=== PATIENT | female | born 1955 | race Caucasian/White ===

== ENCOUNTER 2016-12-02 08:35 | Outpatient (CLI) ==
[2016-12-02 09:27] LABS: ALBUMIN 3.7 g/dL (3.4-5.0); ALBUMIN/GLOBULIN RATIO 1.28; ANION GAP 13.3; BILIRUBIN,TOTAL 0.85 mg/dL (0.00-1.20); BUN/CREATININE RATIO 14.73; CALCIUM 9.2 mg/dL (8.2-10.2); CREATININE 0.95 mg/dL (0.60-1.30); POTASSIUM 4.3 mmol/L (3.5-5.10); TOTAL PROTEIN 6.6 g/dL (5.8-8.1)
== END 2016-12-02 08:36 | disposition home or self-care (01) ==
LOC: LAB 08:35
PROVIDERS: ATTEND Nurse Practitioner Family
DX: I10 Essential (primary) hypertension (principal); E11.65 Type 2 diabetes mellitus with hyperglycemia
CPT/HCPCS: 36415; 80053; 83036

== ENCOUNTER 2017-02-24 08:22 | Outpatient (CLI) ==
--- NOTE | 2017-02-27 08:19 | MAMMO ---
EXAM: Bilateral digital screening mammogram History: Screening Comparison: Bilateral mammogram 02/17/2016 Findings: MLO and CC views of bilateral breasts demonstrate predominately fatty replaced breast par enchyma. Stable benign bilateral breast calcifications. There are no dominant masses, no suspiciou s microcalcifications and no architectural distortions Impression: Benign stable mammogram. Recommend followup routine screening mammography in 1 year. BIRADS 2
== END 2017-02-24 08:23 | disposition home or self-care (01) ==
LOC: RAD 08:22
PROVIDERS: ATTEND Nurse Practitioner Family
DX: Z12.31 Encounter for screening mammogram for malignant neoplasm of breast (principal)

== ENCOUNTER 2017-03-03 07:31 | Outpatient (CLI) ==
[2017-03-03 08:27] LABS: BILIRUBIN,URINE Negative (NEGATIVE); KETONES,URINE Negative (NEGATIVE); LEUKOCYTE ESTERASE ,URINE Negative (NEGATIVE); NITRITE,URINE Negative (NEGATIVE); PH,URINE 6.5 (5-9); PROTEIN,URINE Negative (NEGATIVE); URINE, BLOOD 2+ (NEGATIVE)
[2017-03-03 08:28] LABS: BASOPHILS # (AUTO) 0.1 K/uL (0-0.2); EOSINOPHILS # (AUTO) 0.3 K/ul (0.0-0.7); EOSINOPHILS % (AUTO) 3.2 % (0.0-7.0); HEMATOCRIT 42.5 % (37.0-47.0); HEMOGLOBIN 14.6 g/dl (12.0-16.0); IMMATURE GRANULOCYTE % (AUTO) 0.5 % (0.0-5.0); LYMPHOCYTES # (AUTO) 2.7 K/uL (0.60-3.4); LYMPHOCYTES % (AUTO) 34.2 (10.0-50.0); MEAN CORPUSCULAR HEMOGLOBIN 31.2 pg (27.0-31.0); MEAN CORPUSCULAR HGB CONC 34.4 (31.8-35.4); MEAN CORPUSCULAR VOLUME 90.8 fl (81.0-99.0); MONOCYTES # (AUTO) 0.7 K/uL (0.4-2.0); MONOCYTES % (AUTO) 8.5 (0-10); NEUTROPHILS # (AUTO) 4.2 K/ul (2.0-6.9); NEUTROPHILS % (AUTO) 52.6; PLATELET COUNT 189 10^3/uL (140-440); RED BLOOD COUNT 4.68 10^6/ul (4.20-5.40); WHITE BLOOD COUNT 8.01 K/ul (4.6-10.2)
[2017-03-03 08:31] LABS: ALANINE AMINOTRANSFERASE < 6 U/L (12-78); ALBUMIN 3.8 g/dL (3.4-5.0); ALBUMIN/GLOBULIN RATIO 1.23; ALKALINE PHOSPHATASE 61 U/L (53-141); ANION GAP 12.3; ASPARTATE AMINO TRANSFERASE 21 U/L (15-37); BILIRUBIN,TOTAL 0.63 mg/dL (0.00-1.20); BLOOD UREA NITROGEN 14 mg/dL (7-18); CALCIUM 9.1 mg/dL (8.2-10.2); CARBON DIOXIDE 27 mmol/L (23-31); CHLORIDE 104 mmol/L (98-107); CHOL/HDL RATIO 3.9 (4.5-5.5); CHOLESTEROL 155 mg/dL (0-200); GLUCOSE 279 mg/dL (82-115); HDL CHOLESTEROL 40 mg/dL (35-80); POTASSIUM 4.3 mmol/L (3.5-5.10); SODIUM 139 mmol/L (136-145); TOTAL PROTEIN 6.9 g/dL (5.8-8.1); TRIGLYCERIDES 104 mg/dL (30-150); VLDL CHOLESTEROL 21 mg/dL (2-30)
[2017-03-03 08:32] LABS: ADD URINE MICROSCOPIC YES
== END 2017-03-03 07:32 | disposition home or self-care (01) ==
LOC: LAB 07:31
PROVIDERS: ATTEND Nurse Practitioner Family
DX: E78.5 Hyperlipidemia, unspecified (principal); E11.65 Type 2 diabetes mellitus with hyperglycemia; I10 Essential (primary) hypertension
CPT/HCPCS: 36415; 80053; 80061; 81001; 83036; 85025

== ENCOUNTER 2017-07-07 08:18 | Outpatient (CLI) ==
[2017-07-07 09:18] LABS: ALBUMIN 3.7 g/dL (3.4-5.0); ALBUMIN/GLOBULIN RATIO 1.23; ANION GAP 13.4; BILIRUBIN,TOTAL 1.08 mg/dL (0.00-1.20); BUN/CREATININE RATIO 17.47; CALCIUM 9.4 mg/dL (8.2-10.2); CREATININE 1.03 mg/dL (0.60-1.30); POTASSIUM 4.4 mmol/L (3.5-5.10); TOTAL PROTEIN 6.7 g/dL (5.8-8.1)
== END 2017-07-07 08:19 ==
LOC: LAB 08:18
PROVIDERS: ATTEND Nurse Practitioner Family
DX: E11.65 Type 2 diabetes mellitus with hyperglycemia (principal); I10 Essential (primary) hypertension
CPT/HCPCS: 36415; 80053; 83036

== ENCOUNTER 2017-11-06 08:38 | Outpatient (CLI) ==
[2017-11-06 08:56] LABS: BASOPHILS # (AUTO) 0.1 K/uL (0-0.2); BASOPHILS % (AUTO) 0.7 % (0.0-3.0); EOSINOPHILS # (AUTO) 0.2 K/ul (0.0-0.7); EOSINOPHILS % (AUTO) 1.9 % (0.0-7.0); HEMATOCRIT 42.7 % (37.0-47.0); HEMOGLOBIN 14.5 g/dl (12.0-16.0); IMMATURE GRANULOCYTE % (AUTO) 0.2 % (0.0-5.0); LYMPHOCYTES # (AUTO) 2.9 K/uL (0.60-3.4); LYMPHOCYTES % (AUTO) 35.2 (10.0-50.0); MEAN CORPUSCULAR HEMOGLOBIN 30.8 pg (27.0-31.0); MEAN CORPUSCULAR VOLUME 90.7 fl (81.0-99.0); MONOCYTES # (AUTO) 0.7 K/uL (0.4-2.0); MONOCYTES % (AUTO) 8.6 (0-10); NEUTROPHILS # (AUTO) 4.3 K/ul (2.0-6.9); NEUTROPHILS % (AUTO) 53.4; PLATELET COUNT 190 10^3/uL (140-440); RED BLOOD COUNT 4.71 10^6/ul (4.20-5.40)
[2017-11-06 09:38] LABS: ALBUMIN 3.6 g/dL (3.4-5.0); ALBUMIN/GLOBULIN RATIO 1.2; ANION GAP 13.4; BUN/CREATININE RATIO 13.68; CALCIUM 9.3 mg/dL (8.2-10.2); CHOL/HDL RATIO 4.3 (4.5-5.5); CREATININE 0.95 mg/dL (0.60-1.30); POTASSIUM 4.4 mmol/L (3.5-5.10); TOTAL PROTEIN 6.6 g/dL (5.8-8.1)
[2017-11-06 09:39] LABS: BILIRUBIN,TOTAL 0.8 mg/dL (0.00-1.20)
== END 2017-11-06 08:39 | disposition home or self-care (01) ==
LOC: LAB 08:38
PROVIDERS: ATTEND Nurse Practitioner Family
DX: E11.65 Type 2 diabetes mellitus with hyperglycemia (principal); I10 Essential (primary) hypertension
CPT/HCPCS: 36415; 80053; 80061; 83036; 84443; 85025

== ENCOUNTER 2018-02-16 08:00 | Outpatient (CLI) | END 2018-02-16 08:01 | disposition home or self-care (01) | LOC: LAB 08:00 | PROVIDERS: ATTEND Nurse Practitioner Family | DX: I10 Essential (primary) hypertension (principal); E78.5 Hyperlipidemia, unspecified; E11.9 Type 2 diabetes mellitus without complications | CPT/HCPCS: 36415; 80053; 80061; 83036 ==

== ENCOUNTER 2018-05-31 07:41 | Outpatient (CLI) | END 2018-05-31 07:42 | disposition home or self-care (01) | LOC: LAB 07:41 | PROVIDERS: ATTEND Nurse Practitioner Family | DX: E11.9 Type 2 diabetes mellitus without complications (principal); I10 Essential (primary) hypertension; E78.5 Hyperlipidemia, unspecified | CPT/HCPCS: 36415; 80053; 80061; 83036; 85025 ==

== ENCOUNTER 2018-08-31 08:28 | Outpatient (CLI) | END 2018-08-31 08:29 | disposition home or self-care (01) | LOC: LAB 08:28 | PROVIDERS: ATTEND Nurse Practitioner Family | DX: E11.9 Type 2 diabetes mellitus without complications (principal) | CPT/HCPCS: 36415; 80053; 80061; 83036 ==

== ENCOUNTER 2018-11-30 08:29 | Outpatient (CLI) | END 2018-11-30 08:30 | disposition home or self-care (01) | LOC: LAB 08:29 | PROVIDERS: ATTEND Nurse Practitioner Family | DX: E11.65 Type 2 diabetes mellitus with hyperglycemia (principal); I10 Essential (primary) hypertension | CPT/HCPCS: 36415; 80053; 83036 ==

== ENCOUNTER 2019-03-08 09:01 | Outpatient (CLI) | END 2019-03-08 09:02 | disposition home or self-care (01) | LOC: LAB 09:01 | PROVIDERS: ATTEND Nurse Practitioner Family | DX: E11.9 Type 2 diabetes mellitus without complications (principal); I10 Essential (primary) hypertension; E78.5 Hyperlipidemia, unspecified | CPT/HCPCS: 36415; 80053; 80061; 83036; 84443; 85025 ==

== ENCOUNTER 2021-04-22 15:01 | Observation (INO) ==
[2021-04-22] MEDS ORDERED: SODIUM CHLORIDE 1,000 ML IV STA (15:49)
[2021-04-22] MEDS ORDERED: ZOFRAN 4 MG/2 ML IVP STA (15:53)
[2021-04-22] MEDS ORDERED: MORPHINE 4 MG/ML SYRINGE IVP STA (15:58)
[2021-04-22 16:09] LABS: BASOPHILS # (AUTO) 0.1 K/uL (0-0.2); BASOPHILS % (AUTO) 0.5 % (0.0-3.0); EOSINOPHILS % (AUTO) 0.1 % (0.0-7.0); HEMATOCRIT 47.9 % (37.0-47.0); HEMOGLOBIN 16.7 g/dl (12.0-16.0); IMMATURE GRANULOCYTE # (AUTO) 0.1 (0.0-1.0); IMMATURE GRANULOCYTE % (AUTO) 0.7 % (0.0-5.0); LYMPHOCYTES # (AUTO) 0.9 K/uL (0.60-3.4); MEAN CORPUSCULAR HEMOGLOBIN 31.3 pg (27.0-31.0); MEAN CORPUSCULAR HGB CONC 34.9 (31.8-35.4); MEAN CORPUSCULAR VOLUME 89.9 fl (81.0-99.0); MONOCYTES # (AUTO) 0.7 K/uL (0.4-2.0); MONOCYTES % (AUTO) 4.8 (0-10); NEUTROPHILS # (AUTO) 12.4 K/ul (2.0-6.9); NEUTROPHILS % (AUTO) 87.9 % (42.2-75.2); PLATELET COUNT 186 10^3/uL (140-440); RDW COEFFICIENT OF VARIATION 13.2 % (11.6-14.8); RED BLOOD COUNT 5.33 10^6/ul (4.20-5.40); WHITE BLOOD COUNT 14.05 K/ul (4.6-10.2)
--- NOTE | 2021-04-22 16:09 | ED.PDOC ---
General ED Provider: Dr. SOL LEE Chief Complaint: Nausea/Vomiting Stated Complaint: Onset of RT SIDED ABDOMINAL AND RIGHT SIDED FLANK PAIN THIS MORNING. ASSOCIATED NAUSEA VOMITING AND THEN DIARRHEA. FEEL WEAK AND SHAKY PMHX RENAL STONES Time Seen by Provider: 04/22/21 15:40 Mode of Arrival: Walk-In Information Source: Patient Exam Limitations: No limitations Primary Care Provider: BILL WHEAT APRN, FNP-AMELIA Nursing and Triage Documentation Reviewed and Agree: Yes Does patient meet sepsis criteria?: No System Inflammatory Response Syndrome: Not Applicable Sepsis Protocol: For patient's 13 years and over: Temp is 96.8 and below OR 101 and greater Pulse >90 BPM Resp >20/minute Acutely Altered Mental Status Are patient's symptoms suggestive of a new infection, such as: -Pneumonia -Skin, Soft Tissue -Endocarditis -UTI -Bone, Joint Infection -Implantable Device -Acute Abdominal Infection -Wound Infection -Meningitis -Blood Stream Catheter Infection -Unknown GI Complaint Exam Abdominal Pain Complaint/Exam Onset: Sudden Duration: 7 HRS Symptoms Are: Still present Timing: Intermittent Initial Severity: Moderate Current Severity: Moderate Location of Pain: Diffuse, RUQ, RLQ, Epigastric and Suprapubic Radiates To: Reports Back and Flank Character: Reports Sharp, Aching and Cramping Aggravating: Reports Position Alleviating: Reports None Associated Signs and Symptoms: Reports Dizziness and Urinary frequency; Denies Diaphoresis, Fever, Cough, Chest pain, Back pain, Constipation, Blood in stool, Dysuria, Decreased urine output, Decreased appetite, Vaginal bleeding, Vaginal discharge, Nausea, Vomiting, Diarrhea, Sore throat and Decreased activity Related History: Reports Similar episode Cardiac Risk Factors: Reports None Ectopic Risk Factors: Reports None Ovarian Torsion Risk Factors: Reports None Surgical Obstruction Risk Factors: Reports Colicky abdominal pain Abdominal Findings: Present Abdominal distention and CVA Tenderness Review of Systems Review Of Systems Constitutional: Reports No symptoms Eyes: Reports No symptoms Ears, Nose, Mouth, Throat: Reports No symptoms Respiratory: Reports No symptoms Cardiac: Reports No symptoms GI: Reports Abdominal pain, Nausea and Vomiting : Reports Dysuria and Flank pain Musculoskeletal: Reports No symptoms Skin: Reports No symptoms Neurological: Reports No symptoms Endocrine: Reports No symptoms Hematologic/Lymphatic: Reports No symptoms All Other Systems: Reviewed and Negative [facility] Medical History Bilateral bunions Diabetes mellitus History of kidney stones Hypertension Family History Mother Diabetes FATHER Diabetes SISTER Hypertension Social History Smoking and tobacco status: Former smoker Passive smoking exposure: No Second hand smoke exposure: No Smoking risk assessment performed: No Alcohol intake: never Counseling given: No Counseling provided: none Substance use type: does not use Counseling given: No Counseling provided: none Adopted: No Caregiver/support person: No Foster care: No Household members: spouse Housing: house Marital status: M Lives independently: Yes Number of children: 4 Financial difficulty paying for basics: hard service: No correction: No Current occupational status: retired Current occupational exposures/hazards: No Pets and animals: Yes History of recent travel: No Sexually active: Yes Do you think of yourself as: straight/heterosexual Current gender identity: female Seatbelt use: always Drives intoxicated or rides with intoxicated cdl a driver: No Water heater temperature set < 120 degrees: Yes Working smoke detector in home: Yes Fire extinguisher in home: Yes Carbon monoxide detector in home: Yes Firearms in home: No Surgical History Status post cholecystectomy Female Reproductive History Menstrual Age of Menarche: 11 Hx Hysterectomy: No Hx Tubal Ligation: Yes Physical Exam Physical Exam Appearance: Reports Ill-appearing and Obese Ill-appearing: Moderate Pain Distress: Moderate Eyes: Reports ELIANE, EOMI and Conjunctiva clear ENT: Reports Ears normal, Nose normal and Oropharynx normal Neck: Supple Respiratory: Reports Airway patent, Breath sounds clear, Breath sounds equal and Respirations nonlabored Cardiovascular: Reports RRR, Pulses normal, No rub and No murmur GI/: Reports Soft, No masses, No Organomegaly, Tender and Bowel sounds hypoactive Musculoskeletal: Reports Normal strength, ROM intact, No edema and No calf tenderness Skin: Reports Warm, Dry and Normal color Neurological: Reports Sensation intact, Motor intact, Cranial nerves intact, Alert and Oriented Psychiatric: Reports Affect appropriate and Mood appropriate Interpretation Radiology Interpretation Exam Interpreted: CT Scan (Obstructive 0.7 cm right UPJ calculus with moderate/severe hydronephrosis. Additional nonobstructive right mid/distal ureteral 0.2 cm calculus. Superimposed perinephric and periureteral fat stranding may represent inflammatory change; although infection could have similar appearance. 2. Nonobstru) EKG Interpretation Time of EKG #1: 16:07 Rate: Tachy Rhythm: Sinus Ectopy: None ST Segment: Normal Interpretation: Sinus Tachycardia Re-Evaluation Re-Evaluation Time of Re-Evaluation: 17:54 Pain Level: Pain has improved. VSS. No additional Vomiting or diarrhea Lungs: Clear Skin: Warm and Dry Neuro: Alert and Oriented X3 CV: RRR Physician Notification Case Discussed Physician Notified: Dr Rudd- prefers pt admitted her for hydration and pain control/ Would Time of Notification: 18:45 Physician Notified: If remains stable will discharge pt to travel to [facility] Consult With: Dr Rudd-tomorrow at [facility] ureteral stone removal Critical Care Note Critical Care Note Total Critical Care Time (mins): 60 Course Course Hematology/Chemistry: 04/22/21 16:05 04/22/21 16:05 Orders, Labs, Meds: Lab Review 04/22/21 04/22/21 04/22/21 07:15 16:05 16:05 WBC 14.05 H RBC 5.33 Hgb 16.7 H Hct 47.9 H MCV 89.9 MCH 31.3 H MCHC 34.9 RDW Coeff of Mariela 13.2 Plt Count 186 Immature Gran % (Auto) 0.7 Neut % (Auto) 87.9 H Lymph % (Auto) 6.0 L [place] % (Auto) 4.8 Eos % (Auto) 0.1 Baso % (Auto) 0.5 Neut # (Auto) 12.4 H Lymph # (Auto) 0.9 [place] # (Auto) 0.7 Eos # (Auto) 0.0 Baso # (Auto) 0.1 Immature Gran # (Auto) 0.1 Sodium 137.0 Potassium 4.78 Chloride 100.2 Carbon Dioxide 26.3 Anion Gap 15.28 BUN 11.6 Creatinine 0.94 Estimated GFR (MDRD) 59.00 BUN/Creatinine Ratio 12.34 Glucose 245.4 H Lactic Acid Uric Acid 5.13 Calcium 9.47 Magnesium 0.66 L* Total Bilirubin 1.40 H AST 36.0 ALT 30.0 Alkaline Phosphatase 82.2 Total Protein 7.51 Albumin 4.55 Globulin 2.96 Albumin/Globulin Ratio 1.53 Procalcitonin 0.38 Adenovirus (PCR) B. pertussis DNA (PCR) B.parapertussis DNA PCR C. pneumoniae DNA (PCR) Coronavirus OC43 (PCR) Coronavirus HKU1 (PCR) Coronavirus 229E (PCR) Coronavirus NL63 (PCR) Human Metapneumovir PCR Influenza B (RT-PCR) M. pneumoniae (PCR) Parainfluenza 1 (PCR) Parainfluenza 2 (PCR) Parainfluenza 3 (PCR) Parainfluenza 4 (PCR) RSV (PCR) Entero/Rhino (PCR) SARS-CoV-2 (PCR) 04/22/21 04/22/21 18:10 18:35 WBC RBC Hgb Hct MCV MCH MCHC RDW Coeff of Mariela Plt Count Immature Gran % (Auto) Neut % (Auto) Lymph % (Auto) [place] % (Auto) Eos % (Auto) Baso % (Auto) Neut # (Auto) Lymph # (Auto) [place] # (Auto) Eos # (Auto) Baso # (Auto) Immature Gran # (Auto) Sodium Potassium Chloride Carbon Dioxide Anion Gap BUN Creatinine Estimated GFR (MDRD) BUN/Creatinine Ratio Glucose Lactic Acid 1.87 Uric Acid Calcium Magnesium Total Bilirubin AST ALT Alkaline Phosphatase Total Protein Albumin Globulin Albumin/Globulin Ratio Procalcitonin Adenovirus (PCR) Not detected B. pertussis DNA (PCR) Not detected B.parapertussis DNA PCR Not detected C. pneumoniae DNA (PCR) Not detected Coronavirus OC43 (PCR) Not detected Coronavirus HKU1 (PCR) Not detected Coronavirus 229E (PCR) Not detected Coronavirus NL63 (PCR) Not detected Human Metapneumovir PCR Not detected Influenza B (RT-PCR) Not detected M. pneumoniae (PCR) Not detected Parainfluenza 1 (PCR) Not detected Parainfluenza 2 (PCR) Not detected Parainfluenza 3 (PCR) Not detected Parainfluenza 4 (PCR) Not detected RSV (PCR) Not detected Entero/Rhino (PCR) Not detected SARS-CoV-2 (PCR) Not detected Orders Category Date Time Status EKG-(ED ONLY) Stat CARDIO 04/22/21 15:49 Completed IV [ED IV/MEDIPORT/POWERPORT] .ONCE EMERGENCY 04/22/21 15:49 Active CBC W/ AUTO DIFF Stat LAB 04/22/21 16:05 Completed CMP [COMPREHENSIVE METABOLIC PANEL] Stat LAB 04/22/21 16:05 Completed LACTIC ACID Stat LAB 04/22/21 18:35 Completed MAGNESIUM Stat LAB 04/22/21 16:05 Completed MAGNESIUM Stat LAB 04/22/21 16:05 Received PROCALCITONIN Stat LAB 04/22/21 07:15 Completed RESPIRATORY PANEL 2.1 (PCR) Stat LAB 04/22/21 18:10 Completed UA [URINALYSIS C & S IF INDICATED] Stat LAB 04/22/21 15:50 Uncollected URIC ACID Stat LAB 04/22/21 16:05 Completed URINE DRUG SCREEN (RAPID FOR ED) [DRUG SCREEN, URINE, LAB 04/22/21 15:51 Uncollected RAPID] Stat 0.9 % Sodium Chloride [Saline Flush] MEDS 04/22/21 15:49 Active 1 syr IVF PRN PRN Levofloxacin/D5w [Levaquin 750 mg/150 ml D5w] MEDS 04/22/21 17:39 Discontinued 750 mg in 150 ml IV ONCE Magnesium Sulfate Bag [Magnesium Sulfate 1 gm/100 ml MEDS 04/22/21 16:39 Discontinued D5w] 2 gm in 200 ml IV ONCE Morphine Sulfate [Morphine 4 mg/ml Syringe] MEDS 04/22/21 15:58 Discontinued 4 mg IVP ONCE STA Ondansetron HCl/Pf [Zofran 4 mg/2 ml] MEDS 04/22/21 15:53 Discontinued 4 mg IVP ONCE STA Sodium Chloride 0.9% [Sodium Chloride] 1,000 ml MEDS 04/22/21 15:49 Discont inued IV BOLUS Tamsulosin HCl [Flomax] MEDS 04/22/21 18:01 Discontinued 0.4 mg PO ONCE ONE CHEST, 1V AP ONLY Stat RADS 04/22/21 15:[address] ABD/PEL WO RENAL STONE PROT Stat RADS 04/22/21 15:49 Completed Medications Generic Name Dose Route Start Last Admin Trade Name Freq PRN Reason Stop Dose Admin Sodium Chloride 1 syr 04/22/21 15:49 0.9% Sodium Chloride 10 Ml Disp.Syrin IVF PRN PRN To flush IV Discontinued Medications Generic Name Dose Route Start Last Admin Trade Name Freq PRN Reason Stop Dose Admin Sodium Chloride 1,000 mls @ 1,000 mls/hr 04/22/21 15:49 04/22/21 16:20 Sodium Chloride IV 04/22/21 16:48 1,000 mls/hr BOLUS STA Administration Magnesium Sulfate/Dextrose 2 gm in 200 mls @ 100 mls/hr 04/22/21 16:39 04/22/21 17:06 Magnesium Sulfate 1 Gm/100 Ml D5w IV 04/22/21 18:38 100 mls/hr ONCE STA Administration Levofloxacin/Dextrose 750 mg in 150 mls @ 100 mls/hr 04/22/21 17:39 04/22/21 19:05 Levaquin 750 Mg/150 Ml D5w IV 04/22/21 19:08 100 mls/hr ONCE ONE Administration Morphine Sulfate 4 mg 04/22/21 15:58 04/22/21 16:21 Morphine Sulfate 4 Mg/Ml Syringe IVP 04/22/21 15:59 4 mg ONCE STA Administration Ondansetron HCl 4 mg 04/22/21 15:53 04/22/21 16:20 Ondansetron Hcl/Pf 4 Mg/2 Ml Sdv IVP 04/22/21 15:54 4 mg ONCE STA Administration Tamsulosin HCl 0.4 mg 04/22/21 18:01 04/22/21 18:23 Tamsulosin Hcl 0.4 Mg Cap.Er.24h PO 04/22/21 18:02 0.4 mg ONCE ONE Administration Vital Signs: Temp Pulse Resp BP Pulse Ox 04/22/21 15:03 100.4 F H 109 H 20 185/89 H 94 L Discharge Plan Discharge Patient Disposition: HOME SELF-CARE Discharge Problem: Ureterolithiasis, Low blood magnesium level, Moderate nausea and vomiting, Diabetes type 2, uncontrolled Prescriptions: New methylprednisolone [Medrol (Chente)] 4 mg tablets,dose pack See Rx Instructions .ROUTE .COMPLEX Qty: 21 RF: 0 Zyrtec 10 mg capsule 10 mg PO DAILY 7 Days Qty: 7 RF: 0 No Action fluticasone propionate [Flonase Allergy Relief] 9.9 ML spray,suspension 2 spray NS DAILY PRN (Reason: Allergy Symptoms) Qty: 1 RF: 1 Tradjenta 5 mg tablet 5 mg PO DAILY RF: 0 metformin 1,000 mg tablet 1,000 mg PO BID RF: 0 (DME) blood glucose control, normal [OneTouch Ultra Control] Solution 1 strip MC TID Qty: 100 RF: 2 calcium citrate-vitamin D2 250-100 mg-unit tablet 1 tab PO .daily RF: 0 Lantus Solostar U-100 Insulin 100 unit/mL (3 mL) insulin pen 45 unit SUBCUT QHS Qty: 15 RF: 2 (DME) Comfort EZ Pen Kinnear 33 gauge x 5/16" needle See Rx Instructions .ROUTE .MEDSUPPLY Qty: 100 RF: 0 (DME) lancets [BD Ultra Fine Lancets] 33 gauge misc See Rx Instructions .ROUTE .MEDSUPPLY Qty: 100 RF: 2 Activity Restrictions/Additional Instructions: will admit Dischage tomorrow and travel to [facility] and [facility] for URological consult ED Provider: SOL LEE Physician Progress Note: []
[2021-04-22 16:29] LABS: ALBUMIN 4.55 g/dL (3.5-5.0); ALKALINE PHOSPHATASE 82.2 U/L (53-141); BILIRUBIN,TOTAL 1.4 mg/dL (0.2-1.3); BLOOD UREA NITROGEN 11.6 mg/dL (7-17); CALCIUM 9.47 mg/dL (8.4-10.2); CARBON DIOXIDE 26.3 mmol/L (22-30.0); CHLORIDE 100.2 mmol/L (98-107); CREATININE 0.94 mg/dL (0.60-1.30); GLUCOSE 245.4 mg/dL (74-106); POTASSIUM 4.78 mmol/L (3.5-5.1); TOTAL PROTEIN 7.51 g/dL (6.3-8.2); URIC ACID 5.13 mg/dL (2.5-6.2)
[2021-04-22 16:38] LABS: MAGNESIUM 0.66 mg/dL (1.6-2.3)
[2021-04-22] MEDS ORDERED: MAGNESIUM SULFATE 1 GM/100 ML D5W 2 GM/200 ML BAG IV STA (16:39)
--- NOTE | 2021-04-22 16:49 | DI ---
EXAM: Chest one view, frontal view only. HISTORY: Vomiting. COMPARISON: None. FINDINGS: The heart size is normal. There is no pulmonary vascular congestion. The lungs are clear . No pleural effusion or pneumothorax is seen. No acute osseous abnormality is identified. IMPRESSION: No acute cardiopulmonary process.
--- NOTE | 2021-04-22 17:05 | CT ---
EXAM: CT Abdomen Pelvis HISTORY: Renal stones, right flank pain COMPARISON: None TECHNIQUE: CT of the Abdomen Pelvis was performed without contrast. Coronal and sagital reformats we re obtained. FINDINGS: Bilateral lower lobe peribronchial thickening with mild dependent atelectasis. Normal heart size. Sm all/moderate hiatal hernia. Enlarged liver with generalized hypoattenuation. Multiple splenic calcified granulomas. Fatty infil tration of the pancreas. Cholecystectomy. Unremarkable adrenal glands. Right superior pole renal c yst with thin curvilinear wall calcifications measures 1.7 cm. Right UPJ 0.7 cm calculus with modera te/severe hydronephrosis and perinephric and proximal periureteral fat stranding. Additional nonobst ructive 0.2 cm calculus at the right mid/distal ureter. Nonobstructive left renal calculi measure up to 0.7 cm. Normal bladder. Uterus within normal limits. No free fluid or free air. No bowel dilation. Normal appendix. No adenopathy. Normal diameter aorta. Mild atherosclerotic leo cifications No acute osseous abnormality. Degenerative changes of the thoracolumbar spine. IMPRESSION: 1. Obstructive 0.7 cm right UPJ calculus with moderate/severe hydronephrosis. Additional nonobstruc tive right mid/distal ureteral 0.2 cm calculus. Superimposed perinephric and periureteral fat strand ing may represent inflammatory change; although infection could have similar appearance. 2. Nonobstructive left renal calculi. 3. Complex right superior pole renal cyst with thin curvilinear wall calcifications. Correlation wi th ultrasound recommended. 4. Hepatomegaly and steatosis. 5. Small/moderate hiatal hernia. 6. Bilateral lower lung peribronchial thickening suggesting airways infection/inflammation. All CT scans are performed using dose optimization techniques as appropriate to the performed exam an d include at least one of the following: Automated exposure control, adjustment of the mA and/or kV according t o size, and the use of iterative reconstruction technique.
[2021-04-22] MEDS ORDERED: LEVAQUIN 750 MG/150 ML D5W 750 MG/150 ML BAG IV ONE (17:39)
[2021-04-22] MEDS ORDERED: FLOMAX PO ONE (18:01)
[2021-04-22 18:19] LABS: BORDETELLA PARAPERTUSSIS (PCR) NOT DETECTED (NOT DETECT); BORDETELLA PERTUSSIS (PCR) NOT DETECTED (NOT DETECT); CHLAMYDIA PNEUMONIAE (PCR) NOT DETECTED (NOT DETECT); CORONAVIRUS 229E (PCR) NOT DETECTED (NOT DETECT); CORONAVIRUS HKU1 (PCR) NOT DETECTED (NOT DETECT); CORONAVIRUS NL63 (PCR) NOT DETECTED (NOT DETECT); CORONAVIRUS OC43 (PCR) NOT DETECTED (NOT DETECT); HUMAN METAPNEUMOVIRUS (PCR) NOT DETECTED (NOT DETECT); HUMAN RHINOVIRUS/ENTEROV (PCR) NOT DETECTED (NOT DETECT); INFLUENZA B (PCR) NOT DETECTED (NOT DETECT); MYCOPLASMA PNEUMONIAE (PCR) NOT DETECTED (NOT DETECT); PARAINFLUENZA VIRUS 1 (PCR) NOT DETECTED (NOT DETECT); PARAINFLUENZA VIRUS 2 (PCR) NOT DETECTED (NOT DETECT); PARAINFLUENZA VIRUS 3 (PCR) NOT DETECTED (NOT DETECT); PARAINFLUENZA VIRUS 4 (PCR) NOT DETECTED (NOT DETECT); RESPIRATORY SYNCYTIAL V (PCR) NOT DETECTED (NOT DETECT); SARS_COV_2 (PCR) NOT DETECTED (NOT DETECT)
[2021-04-22 19:11] LABS: ADENOVIRUS (PCR) NOT DETECTED (NOT DETECT)
[2021-04-22] MEDS ORDERED: TORADOL IVP STA (19:38)
[2021-04-22] MEDS ORDERED: ZOFRAN 4 MG/2 ML IVP PRN (19:38)
[2021-04-22] MEDS ORDERED: TYLENOL PO PRN (19:38)
[2021-04-22 20:57] LABS: BILIRUBIN,URINE Negative (NEGATIVE); CLARITY,URINE Slightly (CLEAR); COLOR,URINE Yellow (YELLOW); GLUCOSE, URINE (UA) 2+ (NEGATIVE); KETONES,URINE 2+ (NEGATIVE); LEUKOCYTE ESTERASE ,URINE Negative (NEGATIVE); NITRITE,URINE Positive (NEGATIVE); PROTEIN,URINE 3+ (NEGATIVE); URINE, BLOOD 2+ (NEGATIVE); UROBILINOGEN,URINE 0.2 (0.2)
[2021-04-22] MEDS ORDERED: LANTUS SUBCUT SCH (21:00)
[2021-04-22 21:04] LABS: BACTERIA,URINE 4+ (NOT PRESENT); URINE RBC, MICROSCOPIC 20-30 (0-2)
[2021-04-22 21:06] LABS: AMPHETAMINE SCREEN,URINE NEGATIVE (NEGATIVE); BARBITURATE SCREEN,URINE NEGATIVE (NEGATIVE); BENZODIAZEPINES SCREEN,URINE NEGATIVE (NEGATIVE); CANNABINOID SCREEN,URINE NEGATIVE (NEGATIVE); COCAIN SCREEN,URINE NEGATIVE (NEGATIVE); METHADONE URINE SCREEN NEGATIVE (NEGATIVE); METHAMPHETAMINES SCREEN,URINE NEGATIVE (NEGATIVE); OPIATE SCREEN,URINE POSITIVE (NEGATIVE); OXYCODONE URINE SCREEN NEGATIVE (NEGATIVE); PHENCYCLIDINE SCREEN,URINE NEGATIVE (NEGATIVE); PROPOXYPHENE URINE SCREEN NEGATIVE (NEGATIVE); TRICYCLIC ANTIDEPRESSANTS URIN NEGATIVE (NEGATIVE)
[2021-04-22] MEDS ORDERED: TORADOL IVP PRN (21:22)
[2021-04-22 21:58] VITALS: BMI 25.7
[2021-04-22] MEDS ORDERED: FLONASE NAS PRN (22:24)
[2021-04-23 05:29] LABS: BASOPHILS # (AUTO) 0.1 K/uL (0-0.2); BASOPHILS % (AUTO) 0.4 % (0.0-3.0); EOSINOPHILS % (AUTO) 0.1 % (0.0-7.0); HEMATOCRIT 42.3 % (37.0-47.0); HEMOGLOBIN 14.3 g/dl (12.0-16.0); IMMATURE GRANULOCYTE # (AUTO) 0.1 (0.0-1.0); IMMATURE GRANULOCYTE % (AUTO) 0.4 % (0.0-5.0); LYMPHOCYTES # (AUTO) 1.3 K/uL (0.60-3.4); LYMPHOCYTES % (AUTO) 8.5 (10.0-50.0); MEAN CORPUSCULAR HEMOGLOBIN 30.9 pg (27.0-31.0); MEAN CORPUSCULAR HGB CONC 33.8 (31.8-35.4); MEAN CORPUSCULAR VOLUME 91.4 fl (81.0-99.0); MONOCYTES # (AUTO) 0.8 K/uL (0.4-2.0); MONOCYTES % (AUTO) 5.1 (0-10); NEUTROPHILS # (AUTO) 13.3 K/ul (2.0-6.9); NEUTROPHILS % (AUTO) 85.5 % (42.2-75.2); PLATELET COUNT 149 10^3/uL (140-440); RDW COEFFICIENT OF VARIATION 13.4 % (11.6-14.8); RED BLOOD COUNT 4.63 10^6/ul (4.20-5.40); WHITE BLOOD COUNT 15.59 K/ul (4.6-10.2)
[2021-04-23 05:36] VITALS: BP 108/61; TEMP 98.7
[2021-04-23 05:49] LABS: ALANINE AMINOTRANSFERASE 25.5 U/L (0-35); ALBUMIN 3.59 g/dL (3.5-5.0); ALKALINE PHOSPHATASE 56.2 U/L (53-141); ASPARTATE AMINO TRANSFERASE 32.6 U/L (14-36); BILIRUBIN,TOTAL 1.06 mg/dL (0.2-1.3); BLOOD UREA NITROGEN 17.6 mg/dL (7-17); CALCIUM 8.39 mg/dL (8.4-10.2); CARBON DIOXIDE 26.5 mmol/L (22-30.0); CHLORIDE 101.7 mmol/L (98-107); CREATININE 1.25 mg/dL (0.60-1.30); GLUCOSE 251.9 mg/dL (74-106); POTASSIUM 5.09 mmol/L (3.5-5.1); TOTAL PROTEIN 6.07 g/dL (6.3-8.2)
--- NOTE | 2021-04-23 08:28 | PCM.PROG ---
S: I fell fine O: Vitals: Stable, no fever. A/P: Received patient in sign out from Dr. Valencia and received call from Surgery center in [place]. The would like to come to the surgery center by 11:30. Patient will be discharged and travel to [place] [facility] by Private vehicle.
[2021-04-23] MEDS ORDERED: GLUCOPHAGE PO SCH (08:30)
--- NOTE | 2021-04-23 08:33 | PCM.DC ---
Final Diagnosis: ureteral calculus Medications at Discharge: Ambulatory Orders Medication Instructions Recorded fluticasone propionate [Flonase 2 spray NS DAILY PRN #1 spray 09/05/18 Allergy Relief] blood glucose control, normal #100 strip 07/21/20 calcium cit 250 mg-ergocalciferol 1 tab PO .daily tab 12/31/20 (vit D2) 2.5 mcg (100 unit) tablet insulin glargine 100 unit/mL (3 45 unit SUBCUT QHS #15 ml 03/30/21 mL) subcutaneous pen lancets 33 gauge #100 ea 03/30/21 pen needle, diabetic 33 gauge x #100 ea 03/30/21 5/16" cetirizine [Zyrtec] 10 mg PO DAILY 7 Days #7 cap 04/22/21 linagliptin [Tradjenta] 5 mg PO DAILY 04/22/21 metformin 1,000 mg PO BID 04/22/21 methylprednisolone [Medrol (Chente)] See Rx Instructions .ROUTE 04/22/21 .COMPLEX #21 ea
[2021-04-23] MEDS ORDERED: ZOFRAN ODT PO STA (08:49)
[2021-04-23] MEDS ORDERED: TRADJENTA PO SCH (09:00)
== END 2021-04-23 10:14 | disposition home or self-care (01) ==
LOC: ED 15:01 → MEDSURG A 19:47 → INTOOBSV 19:47 → MEDSURG A 20:26
PROVIDERS: ADMIT Internal Medicine Geriatric Medicine; ATTEND Emergency Medicine
DX: R30.0 Dysuria; R10.11 Right upper quadrant pain; R10.32 Left lower quadrant pain; R11.2 Nausea with vomiting, unspecified; R42 Dizziness and giddiness; E11.65 Type 2 diabetes mellitus with hyperglycemia; N20.2 Calculus of kidney with calculus of ureter; R35.0 Frequency of micturition; R19.7 Diarrhea, unspecified

== ENCOUNTER 2024-12-24 13:53 | Observation (INO) ==
[2024-12-24 14:39] LABS: BASOPHILS # (AUTO) 0.1 K/uL (0-0.2); BASOPHILS % (AUTO) 0.3 % (0.0-3.0); EOSINOPHILS % (AUTO) 0.2 % (0.0-7.0); HEMATOCRIT 37.6 % (37.0-47.0); HEMOGLOBIN 11.9 g/dl (12.0-16.0); IMMATURE GRANULOCYTE # (AUTO) 0.2 (0.0-1.0); IMMATURE GRANULOCYTE % (AUTO) 1.1 % (0.0-5.0); LYMPHOCYTES # (AUTO) 2.2 K/uL (0.60-3.4); LYMPHOCYTES % (AUTO) 14.3 (10.0-50.0); MEAN CORPUSCULAR HEMOGLOBIN 29.1 pg (27.0-31.0); MEAN CORPUSCULAR HGB CONC 31.6 (31.8-35.4); MEAN CORPUSCULAR VOLUME 91.9 fl (81.0-99.0); MONOCYTES # (AUTO) 1.2 K/uL (0.4-2.0); MONOCYTES % (AUTO) 7.7 (0-10); NEUTROPHILS # (AUTO) 11.6 K/ul (2.0-6.9); NEUTROPHILS % (AUTO) 76.4 % (42.2-75.2); PLATELET COUNT 357 10^3/uL (140-440); RDW COEFFICIENT OF VARIATION 12.9 % (11.6-14.8); RED BLOOD COUNT 4.09 10^6/ul (4.20-5.40); WHITE BLOOD COUNT 15.14 K/ul (4.6-10.2)
--- NOTE | 2024-12-24 14:43 | ED.PDOC ---
General ED Provider: Dr. COLIN ADAMS, Chief Complaint: Diabetes Stated Complaint: 69-year-old female diabetic who appears not to check her blood sugar much comes emergency department with primary complaint of flulike illness. Patient was sent by her primary care provider who did do outpatient swabs for flu and COVID as well as chest x-ray which have come back negative however patient was found to have an elevated blood sugar of 440. Sent to the ED for further workup Patient's primary complaint is that of a cough and flulike symptoms along with maxillary sinus pain and congestion. Cough is productive for yellowish-greenish sputum Occasional diarrhea but denies any other abdominal complaints. Time Seen by Provider: 12/24/24 14:50 Mode of Arrival: Walk-In Information Source: Patient Exam Limitations: No limitations Primary Care Provider: SUSANNAH DORMAN APRN, FNP-C Referred to ED by: PCP Nursing and Triage Documentation Reviewed and Agree: Yes What is Opioid Naive?: *Opioid Naive implies the patient is not already taking opioids or not chronically receiving opioids on a daily basis. *PRN dosing is not "usually" associated with tolerance. *Patients are at higher risk of over-sedation and aspiration. What is Opioid Tolerant?: *Opioid Tolerance implies less than the expected response to an opioid. *Acquired tolerance is defined by the patient taking 60mg of oral morphine daily (or equianalgesic dose of another opioid) for 1 week or more. *Often associated with chronic pain. *May take more than usual dose to achieve desired pain control. Review of Systems Review Of Systems Constitutional: Reports Fever and Malaise Eyes: Reports No symptoms Ears, Nose, Mouth, Throat: Reports Ear pain (Bilateral ear pain currently on drops) and Other (Sinus congestion); Denies Mouth swelling or Throat pain Respiratory: Reports Cough; Denies Shortness of Breath Cardiac: Reports No symptoms GI: Reports Diarrhea; Denies Abdominal pain, Nausea or Vomiting : Reports No symptoms Musculoskeletal: Reports Other (Body aches); Denies Neck pain Skin: Reports No symptoms Neurological: Reports No symptoms All Other Systems: Reviewed and Negative [facility] Medical History Pulmonary embolism, bilateral 05/18/21 I26.99 - Other pulmonary embolism without acute cor pulmonale (ICD-10) Hospital discharge follow-up Z09 - Encounter for follow-up examination after completed treatment for conditions other than malignant neoplasm (ICD-10) Hiatal hernia K44.9 - Diaphragmatic hernia without obstruction or gangrene (ICD-10) Fatty liver K76.0 - Fatty (change of) liver, not elsewhere classified (ICD-10) Hepatomegaly R16.0 - Hepatomegaly, not elsewhere classified (ICD-10) Gallstone K80.20 - Calculus of gallbladder without cholecystitis without obstruction (ICD-10) Bilateral bunions M21.611 - Bunion of right foot (ICD-10) M21.612 - Bunion of left foot (ICD-10) History of kidney stones Z87.442 - Personal history of urinary calculi (ICD-10) Hypertension I10 - Essential (primary) hypertension (ICD-10) Diabetes mellitus E11.9 - Type 2 diabetes mellitus without complications (ICD-10) Family History Mother Diabetes FATHER Diabetes SISTER Hypertension Social History Smoking and tobacco status: Former smoker Passive smoking exposure: No Second hand smoke exposure: No Smoking risk assessment performed: No Alcohol intake: never Counseling given: No Counseling provided: none Substance use type: does not use Counseling given: No Counseling provided: none Adopted: No Caregiver/support person: No Foster care: No Household members: spouse Housing: house Marital status: M Lives independently: Yes Number of children: 4 Financial difficulty paying for basics: hard service: No long-term: No Current occupational status: retired Current occupational exposures/hazards: No Pets and animals: Yes History of recent travel: No Sexually active: Yes Do you think of yourself as: straight/heterosexual Current gender identity: female Seatbelt use: always Drives intoxicated or rides with intoxicated driver utility worker: No Water heater temperature set < 120 degrees: Yes Working smoke detector in home: Yes Fire extinguisher in home: Yes Carbon monoxide detector in home: Yes Firearms in home: No Surgical History History of tubal ligation Z98.51 - Tubal ligation status (ICD-10) History of cholecystectomy Z90.49 - Acquired absence of other specified parts of digestive tract (ICD- 10) Female Reproductive History Menstrual Age of Menarche: 11 Hx Hysterectomy: No Hx Tubal Ligation: Yes Physical Exam Physical Exam Appearance: Reports Well-appearing and No pain distress Eyes: Reports ELIANE ENT: Reports Ears normal (Bilateral canals obscured secondary to fluid) and Other (Dullness to transillumination and marked tenderness fullness maxillary sinuses) Neck: Supple Respiratory: Reports Airway patent and Breath sounds equal; Denies Crackles, Rhonchi or Wheezes Cardiovascular: Reports RRR GI/: Reports Soft, Nontender and No masses Musculoskeletal: Reports Normal strength Skin: Reports Warm, Dry and Normal color Neurological: Reports Sensation intact, Motor intact and Cranial nerves intact Re-Evaluation Re-Evaluation Time of Re-Evaluation: 16:01 Status: Unchanged Appearance: NAD Re-Evaluation Time of Re-Evaluation: 17:33 Status: Improved Additional Comments: CT does show a multilobar pneumonia patient started on ceftriaxone and azithromycin, blood sugar down with IV fluid and some insulin nongap borderline O2 sat not currently requiring oxygen had flu and COVID done today as an outpatient both negative Case discussed with hospitalist will admit, patient placed in observation During the patients stay in the Emergency Department, and after a physical exam focused on the patients chief complaint. I have concluded that the patients condition warrants inpatient admission/observation at this time. This decision was made in conjunction with testing done in the ED and after discussing the need for admission with the patient and any family present. This decision was made in conjunction with any testing done, physical exam and information provided by the patient and any family present. I took into consideration discharge but feel that either the patients condition, social supports, access to aftercare, and/or safety justify admission at this time. I have discussed this case with the admitting physician Care was assumed by admitting provider at the time the admission request was placed. I was available for emergencies after that point or if specifically identified here: none This chart was completed using voice recognition dictation software. Please excuse any errors of senior policy advisor including grammatical, punctuation and spelling errors. Please contact me with any questions regarding this chart Course Course 12/24/24 14:35 12/24/24 14:35 Orders, Labs, Meds: Lab Review 12/24/24 12/24/24 14:35 15:08 WBC 15.14 H RBC 4.09 L Hgb 11.9 L Hct 37.6 MCV 91.9 MCH 29.1 MCHC 31.6 L RDW Coeff of Mariela 12.9 Plt Count 357 Immature Gran % (Auto) 1.1 Neut % (Auto) 76.4 H Lymph % (Auto) 14.3 Kingfisher % (Auto) 7.7 Eos % (Auto) 0.2 Baso % (Auto) 0.3 Neut # (Auto) 11.6 H Lymph # (Auto) 2.2 Kingfisher # (Auto) 1.2 Eos # (Auto) 0.0 Baso # (Auto) 0.1 Immature Gran # (Auto) 0.2 Sodium 134.2 L Potassium 4.24 Chloride 99.6 Carbon Dioxide 23.0 Anion Gap 15.84 BUN 31.3 H Creatinine 1.48 H Estimated GFR (MDRD) 35.00 BUN/Creatinine Ratio 21.14 Glucose 451.9 H Lactic Acid 1.54 Calcium 9.50 Total Bilirubin 0.68 AST 56.7 H ALT 47.0 H Alkaline Phosphatase 96.1 Total Protein 7.16 Albumin 3.79 Globulin 3.37 Albumin/Globulin Ratio 1.12 Urine Color Yellow Urine Clarity Turbid Urine pH 5.5 Ur Specific Garrison 1.025 Urine Protein Trace H Urine Glucose (UA) 2+ H Urine Ketones Negative Urine Blood 1+ H Urine Nitrite Negative Urine Bilirubin Negative Urine Urobilinogen 0.2 Ur Leukocyte Esterase Trace H Urine Microscopic RBC 5-10 Urine Microscopic WBC 30-50 Ur Squamous Epith Cells 2-5 Urine Bacteria 2+ Urine Mucus 1+ Orders Category Date Time Status PLACE PATIENT OBSERVATION .TO [facility] (MONITORED BED ADMISSION 12/24/24 17:32 Active ) TELEMETRY MONITORING TELE CARE 12/24/24 17:32 Active CBC W/ AUTO DIFF Stat LAB 12/24/24 14:35 Completed CMP [COMPREHENSIVE METABOLIC PANEL] Stat LAB 12/24/24 14:35 Completed LACTIC ACID Stat LAB 12/24/24 14:35 Completed UA [URINALYSIS C & S IF INDICATED] Stat LAB 12/24/24 15:08 Completed URINE CULTURE Stat LAB 12/24/24 15:08 Received Azithromycin [Zithromax] Meds 12/24/24 16:35 Discontinued 500 mg PO ONCE ONE Ceftriaxone 1 gm Vial [Rocephin 1 gm Vial] Meds 12/24/24 16:35 Discontinued 1 gm IVP ONCE ONE Insulin Regular, Human [Humulin R (10Ml)] Meds 12/24/24 15:18 Discontinued 10 unit SUBCUT ONCE STA Sodium Chloride 0.9% [Sodium Chloride] 1,000 ml Meds 12/24/24 14:[address] CHEST W/O CONTRAST Stat RADS 12/24/24 15:18 Completed Medications Generic Name Dose Route Start Last Admin Trade Name Freq PRN Reason Stop Dose Admin Acetaminophen 650 mg 12/24/24 18:13 Acetaminophen 325 Mg Tablet PO Q4H PRN Mild Pain Albuterol/Ipratropium 3 ml 12/24/24 18:15 12/24/24 21:41 Ipratropium/Albuterol Vial.Neb NEB 3 ml RTQ6H PRN Administration Wheezing Apixaban 5 mg 12/24/24 21:00 12/24/24 22:03 Apixaban 5 Mg Tab PO 5 mg Q12H PARVEEN Administration Atorvastatin Calcium 10 mg 12/24/24 21:00 12/24/24 21:09 Atorvastatin Calcium 10 Mg Tablet PO 10 mg BEDTIME PARVEEN Administration Azithromycin 500 mg 12/25/24 09:00 Azithromycin 250 Mg Tablet PO 12/28/24 08:59 DAILY PARVEEN Cholecalciferol 1,000 unit 12/25/24 09:00 Cholecalciferol (Vitamin D3) 1,000 Unit (25 Mcg) Tablet PO DAILY PARVEEN Diltiazem HCl 120 mg 12/25/24 09:00 Diltiazem Hcl 120 Mg Cap.Er.24h PO DAILY PARVEEN Hydrochlorothiazide 25 mg 12/25/24 09:00 Hydrochlorothiazide 25 Mg Tablet PO DAILY PARVEEN CEFTRIAXONE/D5W 1 GM PREMIX 1 gm in 50 mls @ 100 mls/hr 12/25/24 09:00 Rocephin 1 Gm/50 Ml D5w IV 12/28/24 08:59 DAILY PARVEEN Sodium Chloride 1,000 mls @ 75 mls/hr 12/24/24 18:30 12/24/24 18:37 Sodium Chloride IV 75 mls/hr .[id number] PARVEEN Administration Insulin Glargine 40 unit 12/24/24 21:00 12/24/24 21:20 Insulin Glargine,Hum.Rec.Anlog 100 Units/Ml SUBCUT 40 unit BEDTIME PARVEEN Administration Insulin Human Lispro 0 unit 12/24/24 18:17 12/24/24 21:10 Insulin Lispro 100 Unit/Ml (10 Ml Vial) SUBCUT 7 unit PRN PRN Administration Hyperglycemia Protocol Lisinopril 10 mg 12/25/24 09:00 Lisinopril 10 Mg Tablet PO DAILY PARVEEN Ofloxacin 10 drop 12/24/24 20:30 Ofloxacin 0.3% 5 Ml Otic Christen EACH EAR 12/27/24 20:29 QDAY PARVEEN Ondansetron HCl 4 mg 12/24/24 18:13 Ondansetron Hcl/Pf 4 Mg/2 Ml Sdv IVP Q6H PRN Nausea / Vomiting Discontinued Medications Generic Name Dose Route Start Last Admin Trade Name Freq PRN Reason Stop Dose Admin Azithromycin 500 mg 12/24/24 16:35 12/24/24 16:53 Azithromycin 250 Mg Tablet PO 12/24/24 16:36 500 mg ONCE ONE Administration Ceftriaxone Sodium 1 gm 12/24/24 16:35 12/24/24 16:53 Ceftriaxone 1 Gm Vial IVP 12/24/24 16:36 1 gm ONCE ONE Administration Sodium Chloride 1,000 mls @ 1,000 mls/hr 12/24/24 14:26 12/24/24 16:43 Sodium Chloride IV 12/24/24 15:25 Infused BOLUS ONE Infusion MAGNESIUM SULFATE IN WATER 2 gm in 50 mls @ 25 mls/hr 12/24/24 18:16 12/24/24 18:46 Magnesium Sulf 2 G/50 Ml Bag IV 12/24/24 20:15 25 mls/hr ONCE ONE Administration MAGNESIUM SULFATE IN WATER 2 gm in 50 mls @ 25 mls/hr 12/24/24 20:00 12/24/24 21:09 Magnesium Sulf 2 G/50 Ml Bag IV 12/24/24 21:59 25 mls/hr ONCE ONE Administration Insulin Glargine 50 unit 12/24/24 21:00 Insulin Glargine,Hum.Rec.Anlog 100 Units/Ml SUBCUT BEDTIME [facility] Insulin Human Regular 10 unit 12/24/24 15:18 12/24/24 15:58 Insulin Regular, Human 100 Unit/Ml (10ml) Vial SUBCUT 12/24/24 15:19 10 unit ONCE STA Administration Vital Signs: Temp Pulse Resp BP Pulse Ox 12/24/24 14:07 97.4 F L 100 20 149/68 H 93 L Discharge Plan Discharge Patient Disposition: PLACED OBSERVATION Discharge Problem: Diabetes type 2, uncontrolled Qualifiers: Glycemic state: with hyperglycemia Qualified Code(s): E11.65 - Type 2 diabetes mellitus with hyperglycemia Pneumonia Qualifiers: Pneumonia type: due to unspecified organism Laterality: unspecified laterality Lung location: unspecified part of lung Qualified Code(s): J18.9 - Pneumonia, unspecified organism Did you review [place] FILTER PRESS SUPERVISOR for ALL controlled substances?: Not Applicable ED Provider: COLIN ADAMS
[2024-12-24 14:51] LABS: ALBUMIN 3.79 g/dL (3.5-5.0); ALKALINE PHOSPHATASE 96.1 U/L (53-141); ASPARTATE AMINO TRANSFERASE 56.7 U/L (14-36); BILIRUBIN,TOTAL 0.68 mg/dL (0.2-1.3); BLOOD UREA NITROGEN 31.3 mg/dL (7-17); CALCIUM 9.5 mg/dL (8.4-10.2); CHLORIDE 99.6 mmol/L (98-107); CREATININE 1.48 mg/dL (0.60-1.30); GLUCOSE 451.9 mg/dL (74-106); POTASSIUM 4.24 mmol/L (3.5-5.1); SODIUM 134.2 mmol/L (134.5-145); TOTAL PROTEIN 7.16 g/dL (6.3-8.2)
[2024-12-24 15:20] LABS: BILIRUBIN,URINE Negative (NEGATIVE); CLARITY,URINE Turbid (CLEAR); COLOR,URINE Yellow (YELLOW); GLUCOSE, URINE (UA) 2+ (NEGATIVE); KETONES,URINE Negative (NEGATIVE); LEUKOCYTE ESTERASE ,URINE Trace (NEGATIVE); NITRITE,URINE Negative (NEGATIVE); PH,URINE 5.5 (5-9); PROTEIN,URINE Trace (NEGATIVE); URINE, BLOOD 1+ (NEGATIVE); UROBILINOGEN,URINE 0.2 (0.2)
[2024-12-24] MEDS: SODIUM CHLORIDE 1,000 ML IV ONE (15:21)
[2024-12-24 15:24] LABS: URINE WBC, MICROSCOPIC 30-50 (0-2)
[2024-12-24 15:25] LABS: BACTERIA,URINE 2+ (NOT PRESENT); MUCUS,URINE 1+ (NOT PRESENT)
[2024-12-24] MEDS: HUMULIN R (10ML) SUBCUT STA (15:58)
--- NOTE | 2024-12-24 16:31 | CT ---
EXAM: CHEST CT WITHOUT CONTRAST HISTORY: Cough and fever. TECHNIQUE: CT acquisition of the chest from the thoracic inlet to the upper abdomen without IV contra st administration. 2-D coronal and sagittal reformatted images were obtained from the axial source i mages. IV Contrast: None. CT Dose Reduction Techniques Performed: Yes. COMPARISON: The chest x-ray done earlier in the day. FINDINGS: Lines, Tubes, Devices: None. Lung Parenchyma and Airways: Central airways are patent without endobronchial lesion. The patchy ret icular nodular opacities seen in the right middle lobe and left lower lobe. The mild amount of patch y reticular opacity in the right lower lobe. No other opacities. No consolidations. Postinflammato ry changes in the apices. No suspicious pulmonary nodule. Calcified granuloma in the left upper lobe . Pleural Space: No pleural effusion or thickening. No pneumothorax. Thoracic Inlet, Mediastinum, and Susan: Inferior left thyroid does show a 1.4 cm hypodense nodule. Th e the remaining thyroid is unremarkable. Multiple small lymph nodes in the mediastinal and hilar reg ions, some which are calcified. No enlarged lymph nodes or abnormal density. Heart, Vessels, and Pericardium: The heart is normal size without pericardial effusion. Mild coronar y artery calcifications. Aorta shows mild atherosclerotic calcific changes without aneurysm. The pu lmonary arteries are grossly normal. Bones and Soft Tissues: No fracture, lytic lesion, or blastic lesion. Mild degenerative changes in th e spine. Mild degenerative changes of both AC joints. Chest wall soft tissues are unremarkable. Upper Abdomen: Nonobstructing right renal calculi. The right kidney does show a mild atrophy and sc arring. The splenic calcifications. A small to moderate hiatal hernia. The duodenal diverticulum. The remaining upper abdomen visualized is within normal limits. IMPRESSION: 1. Patchy reticular nodular opacities seen in the right middle lobe, right lower lobe and left lower lobe. This may represent early nonspecific pneumonia. Suggest follow-up exam to assess for clearin g or other etiologies. 2. 1.4 cm hypodense left thyroid nodule. [employer] Incidental Thyroid Findings Committee - 2015 Recommendations: Thyroid nodule < 1 cm: no follow-up Thyroid nodule 1-1.5 cm: follow-up ultrasound for patients </= 35 years old Thyroid nodule >1.5 cm: follow-up ultrasound for all patients 3. Other chronic and non emergent findings as above. All CT scans are performed using dose optimization techniques as appropriate to the performed exam an d include at least one of the following: Automated exposure control, adjustment of the mA and/or kV according t o size, and the use of iterative reconstruction technique.
[2024-12-24] MEDS: ZITHROMAX PO ONE (16:53)
[2024-12-24] MEDS: ROCEPHIN 1 GM VIAL IVP ONE (16:53)
[2024-12-24] MEDS ORDERED: TYLENOL PO PRN (18:13)
[2024-12-24] MEDS ORDERED: ZOFRAN SDV IVP PRN (18:13)
[2024-12-24] MEDS: SODIUM CHLORIDE 1,000 ML IV SCH (18:37)
[2024-12-24 18:41] VITALS: BMI 24.0
[2024-12-24] MEDS: MAGNESIUM SULF 2 G/50 ML BAG 2 GM/50 ML PIGGYBACK IV ONE ×2 (18:46→21:09)
[2024-12-24] MEDS ORDERED: LANTUS SUBCUT SCH (21:00)
[2024-12-24] MEDS: LIPITOR PO SCH (21:09)
[2024-12-24] MEDS: HUMALOG (10 ML VIAL) SUBCUT PRN (21:10)
[2024-12-24] MEDS: LANTUS SUBCUT SCH (21:20)
[2024-12-24] MEDS: DUONEB NEB PRN (21:41)
[2024-12-24] MEDS: ELIQUIS PO SCH (22:03)
[2024-12-25 05:34] LABS: BASOPHILS % (AUTO) 0.3 % (0.0-3.0); EOSINOPHILS # (AUTO) 0.1 K/ul (0.0-0.7); EOSINOPHILS % (AUTO) 0.6 % (0.0-7.0); HEMATOCRIT 34.3 % (37.0-47.0); HEMOGLOBIN 11.2 g/dl (12.0-16.0); IMMATURE GRANULOCYTE # (AUTO) 0.1 (0.0-1.0); IMMATURE GRANULOCYTE % (AUTO) 1.2 % (0.0-5.0); LYMPHOCYTES # (AUTO) 2.4 K/uL (0.60-3.4); LYMPHOCYTES % (AUTO) 19.7 (10.0-50.0); MEAN CORPUSCULAR HGB CONC 32.7 (31.8-35.4); MONOCYTES % (AUTO) 8.4 (0-10); NEUTROPHILS # (AUTO) 8.3 K/ul (2.0-6.9); NEUTROPHILS % (AUTO) 69.8 % (42.2-75.2); PLATELET COUNT 345 10^3/uL (140-440); RED BLOOD COUNT 3.73 10^6/ul (4.20-5.40); WHITE BLOOD COUNT 11.94 K/ul (4.6-10.2)
[2024-12-25] MEDS: HYDROCHLOROTHIAZIDE PO SCH (08:55)
[2024-12-25] MEDS: ZESTRIL PO SCH (08:55)
[2024-12-25] MEDS: VITAMIN D PO SCH (08:55)
[2024-12-25] MEDS: ZITHROMAX PO SCH (08:55)
[2024-12-25] MEDS: CARDIZEM CD PO SCH (08:55)
[2024-12-25] MEDS: ROCEPHIN 1 GM/50 ML D5W 1 GM/50 ML BAG IV SCH (08:55)
[2024-12-25 08:57] LABS: ALANINE AMINOTRANSFERASE 42.7 U/L (0-35); ALBUMIN 3.18 g/dL (3.5-5.0); ALKALINE PHOSPHATASE 86.9 U/L (53-141); BILIRUBIN,TOTAL 0.39 mg/dL (0.2-1.3); BLOOD UREA NITROGEN 26.5 mg/dL (7-17); CALCIUM 9.02 mg/dL (8.4-10.2); CARBON DIOXIDE 23.8 mmol/L (22-30.0); CHLORIDE 104.2 mmol/L (98-107); CREATININE 1.21 mg/dL (0.60-1.30); GLUCOSE 325.5 mg/dL (74-106); POTASSIUM 3.91 mmol/L (3.5-5.1); SODIUM 136.6 mmol/L (134.5-145); TOTAL PROTEIN 6.31 g/dL (6.3-8.2)
[2024-12-25] MEDS: MAGNESIUM SULF 2 G/50 ML BAG 2 GM/50 ML PIGGYBACK IV ONE (09:51)
[2024-12-25] MEDS: FLOXIN 0.3% OTIC SOL EACH EAR SCH (10:24)
--- NOTE | 2024-12-25 10:50 | PCM ---
Date of Service Date Seen by Provider: 12/25/24 Time Seen by Provider: 08:50 Admit Day/Time Admission Date: 12/24/24 Admission Time: 17:32 Reason for Admission Chief Complaint: MULTILOBAR PNEUMONIA, HYPERGLYCEMIA Hospital Provider Hospital Provider: MENDY MOORE PA-C, [facility] [place] Primary Care Physician Primary Care Physician: SUSANNAH DORMAN APRN, KAREN-C History of Present Illness History of Present Illness: Patient is a 69 year old female from home who presented to ER with worsening cough and sob. She was concerned about having pna. She had seen her pcp and had baseline labs as well. Pt denies any recent abx or steroids. In the ER she was found to have elevated glucose >400 and multilobar pneumonia on CT. Viral swabs negative. She was given rocephin, azithromycin, and insulin. Pt is on RA. Admitted to med surg. Pt states her sugars are normally between 100-200 at home, was surprsied her glucose was so high in ER. States she's feeling better today but not well enough to go home yet. Case Discussed With Case Discussed With: Patient's case was discussed with the ER Physicians, Dr. Rea. [facility] Medical History Pulmonary embolism, bilateral 05/18/21 I26.99 - Other pulmonary embolism without acute cor pulmonale (ICD-10) Hospital discharge follow-up Z09 - Encounter for follow-up examination after completed treatment for conditions other than malignant neoplasm (ICD-10) Hiatal hernia K44.9 - Diaphragmatic hernia without obstruction or gangrene (ICD-10) Fatty liver K76.0 - Fatty (change of) liver, not elsewhere classified (ICD-10) Hepatomegaly R16.0 - Hepatomegaly, not elsewhere classified (ICD-10) Gallstone K80.20 - Calculus of gallbladder without cholecystitis without obstruction (ICD-10) Bilateral bunions M21.611 - Bunion of right foot (ICD-10) M21.612 - Bunion of left foot (ICD-10) History of kidney stones Z87.442 - Personal history of urinary calculi (ICD-10) Hypertension I10 - Essential (primary) hypertension (ICD-10) Diabetes mellitus E11.9 - Type 2 diabetes mellitus without complications (ICD-10) Surgical History History of tubal ligation Z98.51 - Tubal ligation status (ICD-10) History of cholecystectomy Z90.49 - Acquired absence of other specified parts of digestive tract (ICD- 10) Family History Mother Diabetes FATHER Diabetes SISTER Hypertension Social History Smoking and tobacco status: Former smoker Passive smoking exposure: No Second hand smoke exposure: No Smoking risk assessment performed: No Alcohol intake: never Counseling given: No Counseling provided: none Substance use type: does not use Counseling given: No Counseling provided: none Adopted: No Caregiver/support person: No Foster care: No Household members: spouse Housing: house Marital status: M Lives independently: Yes Number of children: 4 Financial difficulty paying for basics: hard service: No CHCF: No Current occupational status: retired Current occupational exposures/hazards: No Pets and animals: Yes History of recent travel: No Sexually active: Yes Do you think of yourself as: straight/heterosexual Current gender identity: female Seatbelt use: always Drives intoxicated or rides with intoxicated jukebox route driver: No Water heater temperature set < 120 degrees: Yes Working smoke detector in home: Yes Fire extinguisher in home: Yes Carbon monoxide detector in home: Yes Firearms in home: No Allergies Allergies Allergy/AdvReac Type Severity Reaction Status Date / Time egg Allergy Severe rash, n/v Verified 12/24/24 14:13 Influenza Virus Vaccines Allergy Severe allergy to Verified 12/24/24 14:13 eggs sitagliptin phosphate (From AdvReac Vomiting Verified 12/24/24 14:13 Januvia) pcn Allergy Severe rash, Uncoded 12/24/24 14:13 swelling Current Medications Home Medications Acetaminophen (Acetaminophen 325 Mg Tablet) 650 mg PO Q4H PRN PRN Reason: Mild Pain Albuterol/Ipratropium (Ipratropium/Albuterol Vial.Neb) 3 ml NEB RTQ6H PRN PRN Reason: Wheezing Last Admin: 12/25/24 05:39 Dose: 3 ml Apixaban (Apixaban 5 Mg Tab) 5 mg PO Q12H [facility] Last Admin: 12/25/24 08:55 Dose: 5 mg Atorvastatin Calcium (Atorvastatin Calcium 10 Mg Tablet) 10 mg PO BEDTIME [facility] Last Admin: 12/24/24 21:09 Dose: 10 mg Azithromycin (Azithromycin 250 Mg Tablet) 500 mg PO DAILY [facility] Stop: 12/28/24 08:59 Last Admin: 12/25/24 08:55 Dose: 500 mg Cholecalciferol (Cholecalciferol (Vitamin D3) 1,000 Unit (25 Mcg) Tablet) 1,000 unit PO DAILY [facility] Last Admin: 12/25/24 08:55 Dose: 1,000 unit Diltiazem HCl (Diltiazem Hcl 120 Mg Cap.Er.24h) 120 mg PO DAILY [facility] Last Admin: 12/25/24 08:55 Dose: 120 mg Hydrochlorothiazide (Hydrochlorothiazide 25 Mg Tablet) 25 mg PO DAILY [facility] Last Admin: 12/25/24 08:55 Dose: 25 mg CEFTRIAXONE/D5W 1 GM PREMIX (Rocephin 1 Gm/50 Ml D5w) 1 gm in 50 mls @ 100 mls/hr IV DAILY [facility] Stop: 12/28/24 08:59 Last Admin: 12/25/24 08:55 Dose: 100 mls/hr Sodium Chloride (Sodium Chloride) 1,000 mls @ 75 mls/hr IV .[id number] [facility] Last Admin: 12/25/24 07:08 Dose: 75 mls/hr Insulin Glargine (Insulin Glargine,Hum.Rec.Anlog 100 Units/Ml) 40 unit SUBCUT BEDTIME [facility] Last Admin: 12/24/24 21:20 Dose: 40 unit Insulin Human Lispro (Insulin Lispro 100 Unit/Ml (10 Ml Vial)) 0 unit SUBCUT PRN PRN; Protocol PRN Reason: Hyperglycemia Last Admin: 12/25/24 06:14 Dose: 10 unit Lisinopril (Lisinopril 10 Mg Tablet) 10 mg PO DAILY [facility] Last Admin: 12/25/24 08:55 Dose: 10 mg Ofloxacin (Ofloxacin 0.3% 5 Ml Otic Christen) 10 drop EACH EAR DAILY [facility] Stop: 12/30/24 10:00 Last Admin: 12/25/24 10:24 Dose: 2 each Ondansetron HCl (Ondansetron Hcl/Pf 4 Mg/2 Ml Sdv) 4 mg IVP Q6H PRN PRN Reason: Nausea / Vomiting blood glucose control, normal (OneTouch Ultra Control solution) #100 strips 07/21/20 [Rx Confirmed 12/24/24] lancets 33 gauge (BD Ultra Fine Lancets) #100 ea 03/30/21 [Rx Confirmed 12/24/24] cholecalciferol (vitamin D3) 25 mcg (1,000 unit) capsule 25 mcg PO QDAY 12/06/23 [History Confirmed 12/24/24] pen needle, diabetic 31 gauge x 3/16" (BD Ultra-Fine Mini Pen Needle) #100 ea 09/23/24 [Rx Confirmed 12/24/24] apixaban 5 mg tablet (Eliquis) See Rx Instructions .Route .COMPLEX #60 tabs 10/09/24 [Rx Confirmed 12/24/24] atorvastatin 10 mg tablet See Rx Instructions .Route .COMPLEX #30 tabs 10/09/24 [Rx Confirmed 12/24/24] chlorthalidone 25 mg tablet 25 mg PO QDAY #90 tabs 10/09/24 [Rx Confirmed 12/24/24] diltiazem HCl 120 mg capsule,extended release 24 hr (Cartia XT) See Rx Instructions .Route .COMPLEX #120 caps 10/09/24 [Rx Confirmed 12/24/24] lisinopril 5 mg tablet See Rx Instructions .Route .COMPLEX #180 tabs 10/09/24 [Rx Confirmed 12/24/24] metformin 1,000 mg tablet 1,000 mg PO 2XD #60 tabs 10/09/24 [Rx Confirmed 12/24/24] insulin degludec 200 unit/mL (3 mL) subcutaneous pen (Tresiba FlexTouch U-200 insulin) See Rx Instructions .Route .COMPLEX 12/24/24 [History Confirmed 12/24/24] ofloxacin 0.3 % ear drops 10 drp BOTHEARS QDAY 12/24/24 [History Confirmed 12/24/24] Opioid Naive vs. Tolerant Does Patient Take Opioids?: No Is Patient Opioid Naive?: Yes What is Opioid Naive?: *Opioid Naive implies the patient is not already taking opioids or not chronically receiving opioids on a daily basis. *PRN dosing is not "usually" associated with tolerance. *Patients are at higher risk of over-sedation and aspiration. Is Patient Opioid Tolerant?: No What is Opioid Tolerant?: *Opioid Tolerance implies less than the expected response to an opioid. *Acquired tolerance is defined by the patient taking 60mg of oral morphine daily (or equianalgesic dose of another opioid) for 1 week or more. *Often associated with chronic pain. *May take more than usual dose to achieve desired pain control. Review of Systems Constitutional: Reports Fever, Fatigue and Weakness Head: Reports Normocephalic and Atraumatic Ears: Reports Drainage Cardiovascular: Denies Chest pain, Chest Pressure or Edema Respiratory: Reports Cough and Shortness of air Gastrointestinal: Denies Nausea, Diarrhea, Abdominal pain or Melena Physical examination Most Recent Vital Signs: Most Recent Vital Signs Temperature 97.7 F 12/25/24 05:01 Temperature Source Temporal Artery Scan 12/25/24 05:01 Temperature Source Infrared 12/24/24 14:07 Pulse Rate 100 12/25/24 07:47 Respiratory Rate 20 12/25/24 07:47 Blood Pressure 136/63 12/25/24 05:01 Blood Pressure Mean 87 12/25/24 05:01 Blood Pressure Left Arm 134/69 12/24/24 18:29 Blood Pressure Location Left Arm 12/25/24 05:01 Blood Pressure Position Supine 12/25/24 05:01 O2 Sat by Pulse Oximetry 93 L 12/25/24 05:01 Oxygen Delivery Method Room Air 12/25/24 10:00 Height 6 ft 1 in 12/24/24 18:29 Weight 82.5 kg 12/24/24 18:29 Telemetry Type Remote Telemetry 12/25/24 07:00 Telemetry Monitoring Continues 12/25/24 07:00 Telemetry Heart Rate 98 12/25/24 07:00 Telemetry SPO2 87 L 04/23/21 07:00 EKG AK Interval 0.18 12/25/24 07:00 EKG QRS Interval 0.07 12/25/24 07:00 Telemetry Strip Reading NSR 12/25/24 07:00 Appearance: Positive No Apparent Distress, Alert and Oriented x3 and Other (+hard of hearing ) Skin: Positive Severance, Warm and Good Turgor; Negative Rashes HEENT: Positive Normocephalic and Atraumatic Neck: Positive Supple and Midline Trachea Chest/Lungs: Positive Clear to Auscultation Bilaterally; Negative Rales, Rhonci or Wheezes Heart: Positive RRR GI/: Positive Soft, Nontender, Bowel Sounds Normal and No Distention Extremities: Negative Edema Neurological: Positive Cranial Nerves Intact, Alert, Oriented and Muscle Strength 5/5 in Upper and Lower Extremities Bilaterally Psychiatric: Positive Oriented x4, Appropriate Mood and Appropriate Affect Labs This Visit Labs This Visit: Labs This Visit 12/24/24 12/24/24 12/25/24 14:35 15:08 05:14 WBC 15.14 H 11.94 H RBC 4.09 L 3.73 L Hgb 11.9 L 11.2 L Hct 37.6 34.3 L MCV 91.9 92.0 MCH 29.1 30.0 MCHC 31.6 L 32.7 RDW Coeff of Mariela 12.9 13.0 Plt Count 357 345 Immature Gran % (Auto) 1.1 1.2 Neut % (Auto) 76.4 H 69.8 Lymph % (Auto) 14.3 19.7 [place] % (Auto) 7.7 8.4 Eos % (Auto) 0.2 0.6 Baso % (Auto) 0.3 0.3 Neut # (Auto) 11.6 H 8.3 H Lymph # (Auto) 2.2 2.4 [place] # (Auto) 1.2 1.0 Eos # (Auto) 0.0 0.1 Baso # (Auto) 0.1 0.0 Immature Gran # (Auto) 0.2 0.1 Sodium 134.2 L 136.6 Potassium 4.24 3.91 Chloride 99.6 104.2 Carbon Dioxide 23.0 23.8 Anion Gap 15.84 12.51 BUN 31.3 H 26.5 H Creatinine 1.48 H 1.21 Estimated GFR (MDRD) 35.00 44.00 BUN/Creatinine Ratio 21.14 21.90 Glucose 451.9 H 325.5 H D Lactic Acid 1.54 Calcium 9.50 9.02 Magnesium 1.74 Total Bilirubin 0.68 0.39 AST 56.7 H 36.0 ALT 47.0 H 42.7 H Alkaline Phosphatase 96.1 86.9 Total Protein 7.16 6.31 Albumin 3.79 3.18 L Globulin 3.37 3.13 Albumin/Globulin Ratio 1.12 1.01 Urine Color Yellow Urine Clarity Turbid Urine pH 5.5 Ur Specific [place] 1.025 Urine Protein Trace H Urine Glucose (UA) 2+ H Urine Ketones Negative Urine Blood 1+ H Urine Nitrite Negative Urine Bilirubin Negative Urine Urobilinogen 0.2 Ur Leukocyte Esterase Trace H Urine Microscopic RBC 5-10 Urine Microscopic WBC 30-50 Ur Squamous Epith Cells 2-5 Urine Bacteria 2+ Urine Mucus 1+ Microbiology This Visit 12/24/24 15:08 Urine,Clean Catch Urine Culture - Preliminary Imaging Imaging: EXAM: CHEST RADIOGRAPH TECHNIQUE: Two views. Frontal and lateral. HISTORY: Cough. COMPARISON: 04/22/2021 FINDINGS: The lungs are clear. The heart size is normal. Osseous structures are unremarkable IMPRESSION: 1. Normal Exam. EXAM: CHEST CT WITHOUT CONTRAST HISTORY: Cough and fever. TECHNIQUE: CT acquisition of the chest from the thoracic inlet to the upper abdomen without IV contrast administration. 2-D coronal and sagittal reformatted images were obtained from the axial source images. IV Contrast: None. CT Dose Reduction Techniques Performed: Yes. COMPARISON: The chest x-ray done earlier in the day. FINDINGS: Lines, Tubes, Devices: None. Lung Parenchyma and Airways: Central airways are patent without endobronchial lesion. The patchy reticular nodular opacities seen in the right middle lobe and left lower lobe. The mild amount of patchy reticular opacity in the right lower lobe. No other opacities. No consolidations. Postinflammatory changes in the apices. No suspicious pulmonary nodule. Calcified granuloma in the left upper lobe. Pleural Space: No pleural effusion or thickening. No pneumothorax. Thoracic Inlet, Mediastinum, and Susan: Inferior left thyroid does show a 1.4 cm hypodense nodule. The the remaining thyroid is unremarkable. Multiple small lymph nodes in the mediastinal and hilar regions, some which are calcified. No enlarged lymph nodes or abnormal density. Heart, Vessels, and Pericardium: The heart is normal size without pericardial effusion. Mild coronary artery calcifications. Aorta shows mild a therosclerotic calcific changes without aneurysm. The pulmonary arteries are grossly normal. Bones and Soft Tissues: No fracture, lytic lesion, or blastic lesion. Mild degenerative changes in the spine. Mild degenerative changes of both AC joints. Chest wall soft tissues are unremarkable. Upper Abdomen: Nonobstructing right renal calculi. The right kidney does show a mild atrophy and scarring. The splenic calcifications. A small to moderate hiatal hernia. The duodenal diverticulum. The remaining upper abdomen visualized is within normal limits. IMPRESSION: 1. Patchy reticular nodular opacities seen in the right middle lobe, right lower lobe and left lower lobe. This may represent early nonspecific pneumonia. Suggest follow-up exam to assess for clearing or other etiologies. 2. 1.4 cm hypodense left thyroid nodule. ----- [employer] Incidental Thyroid Findings Committee - 2015 Recommendations: Thyroid nodule < 1 cm: no follow-up Thyroid nodule 1-1.5 cm: follow-up ultrasound for patients </= 35 years old Thyroid nodule >1.5 cm: follow-up ultrasound for all patients 3. Other chronic and non emergent findings as above. Review Statement Review Statement: I have independently reviewed and interpreted the labs/EKGs/imaging that were ordered by the ER provider. I have reviewed all outside records that are available currently in our EMR including imaging/notes/labs from previous visits. Plan Plan: 1. CAP, multilobar - Rocephin and azith, duonebs, O2 prn 2. Hyperglycemia in setting of insulin dependent DMT2 - Cont home insulin, add ss humalog, accuchecks achs, diabetic diet 3. PAF - Cont home meds 4. Hypertension - Cont home meds 5. Hyperlipidemia - Cont home meds 6. Left thyroid nodule - Follow up with pcp 7. Hypomagnesemia - Was 1 yesterday, improved to 1.7 today, give another 2gm mag rider. DVT Prophylaxis: eliquis Time Spent: Greater than 80 minutes spent with patient, 50% of the time spent with this patient was devoted to counseling and coordination of care. [facility]in minutes spent discussing advance care planning. Admit to: Obs Discussed Plan of Care with Dr. Marcio Moulton. Medications Medication Orders: Medications Ordered Category Date Time Status Acetaminophen [Tylenol] Meds 12/24/24 18:13 Active 650 mg PO Q4H PRN Apixaban [Eliquis] Meds 12/24/24 21:00 Active 5 mg PO Q12H Atorvastatin Calcium [Lipitor] Meds 12/24/24 21:00 Active 10 mg PO BEDTIME Azithromycin [Zithromax] Meds 12/25/24 09:00 Active 500 mg PO DAILY Ceftriaxone/D5w 1 gm Premix [Rocephin 1 gm/50 ml D5w] Meds 12/25/24 09:00 Active 1 gm in 50 ml IV DAILY Cholecalciferol (Vitamin D3) [Vitamin D] Meds 12/25/24 09:00 Active 1,000 unit PO DAILY Diltiazem HCl [Cardizem Cd] Meds 12/25/24 09:00 Active 120 mg PO DAILY Hydrochlorothiazide Meds 12/25/24 09:00 Active 25 mg PO DAILY Insulin Glargine,Hum.rec.anlog [Lantus] Meds 12/24/24 21:00 Active 40 unit SUBCUT BEDTIME Insulin Lispro [Humalog (10 ml Vial)] Meds 12/24/24 18:17 Active See Protocol SUBCUT PRN PRN Ipratropium/Albuterol Neb [Duoneb] Meds 12/24/24 18:15 Active 3 ml NEB RTQ6H PRN Lisinopril [Zestril] Meds 12/25/24 09:00 Active 10 mg PO DAILY Ofloxacin 0.3% Otic Christen [Floxin 0.3% Otic Christen] Meds 12/25/24 09:00 Active 10 drop EACH EAR DAILY Ondansetron HCl/Pf [Zofran Sdv] Meds 12/24/24 18:13 Active 4 mg IVP Q6H PRN Sodium Chloride 0.9% [Sodium Chloride] 1,000 ml Meds 12/24/24 18:30 Active IV 75 mls/hr
[2024-12-26 05:11] LABS: BASOPHILS # (AUTO) 0.1 K/uL (0-0.2); BASOPHILS % (AUTO) 0.6 % (0.0-3.0); EOSINOPHILS # (AUTO) 0.1 K/ul (0.0-0.7); EOSINOPHILS % (AUTO) 1.2 % (0.0-7.0); HEMATOCRIT 35.4 % (37.0-47.0); HEMOGLOBIN 11.3 g/dl (12.0-16.0); IMMATURE GRANULOCYTE # (AUTO) 0.1 (0.0-1.0); IMMATURE GRANULOCYTE % (AUTO) 1.1 % (0.0-5.0); LYMPHOCYTES # (AUTO) 2.1 K/uL (0.60-3.4); LYMPHOCYTES % (AUTO) 22.7 (10.0-50.0); MEAN CORPUSCULAR HEMOGLOBIN 29.6 pg (27.0-31.0); MEAN CORPUSCULAR HGB CONC 31.9 (31.8-35.4); MEAN CORPUSCULAR VOLUME 92.7 fl (81.0-99.0); MONOCYTES # (AUTO) 0.8 K/uL (0.4-2.0); MONOCYTES % (AUTO) 8.5 (0-10); NEUTROPHILS # (AUTO) 6.2 K/ul (2.0-6.9); NEUTROPHILS % (AUTO) 65.9 % (42.2-75.2); PLATELET COUNT 334 10^3/uL (140-440); RDW COEFFICIENT OF VARIATION 12.7 % (11.6-14.8); RED BLOOD COUNT 3.82 10^6/ul (4.20-5.40)
[2024-12-26 05:22] LABS: ALANINE AMINOTRANSFERASE 45.7 U/L (0-35); ALBUMIN 3.08 g/dL (3.5-5.0); ALKALINE PHOSPHATASE 79.7 U/L (53-141); ASPARTATE AMINO TRANSFERASE 43.5 U/L (14-36); BILIRUBIN,TOTAL 0.27 mg/dL (0.2-1.3); BLOOD UREA NITROGEN 14.5 mg/dL (7-17); CALCIUM 9.1 mg/dL (8.4-10.2); CARBON DIOXIDE 24.4 mmol/L (22-30.0); CHLORIDE 106.5 mmol/L (98-107); CREATININE 0.99 mg/dL (0.60-1.30); GLUCOSE 184.2 mg/dL (74-106); MAGNESIUM 1.38 mg/dL (1.6-2.3); POTASSIUM 3.75 mmol/L (3.5-5.1); SODIUM 140.4 mmol/L (134.5-145); TOTAL PROTEIN 6.05 g/dL (6.3-8.2)
[2024-12-26 07:38] VITALS: RESP 18
[2024-12-26] MEDS: MAGNESIUM SULF 2 G/50 ML BAG 2 GM/50 ML PIGGYBACK IV ONE ×2 (09:35→11:59)
--- NOTE | 2024-12-26 11:48 | DCSUM ---
Admission Date Admission Date: 12/24/24 Discharge Date Discharge Date: 12/26/24 Admission Diagnosis Admission Diagnosis: 1. CAP, multilobar 2. Hyperglycemia in setting of insulin dependent DMT2 Discharge Diagnosis Discharge Diagnosis: 1. CAP, multilobar 2. Hyperglycemia in setting of insulin dependent DMT2 3. PAF 4. Hypertension 5. Hyperlipidemia 6. Left thyroid nodule 7. Hypomagnesemia - Hospital Provider Hospital Provider: MENDY MOORE PA-C, [facility] [place] Primary Care Physician Primary Care Physician: SUSANNAH DORMAN APRN, CELL COVERER-C Summary of History and Physical Summary of History and Physical: Patient is a 69 year old female from home who presented to ER with worsening cough and sob. She was concerned about having pna. She had seen her pcp and had baseline labs as well. Pt denies any recent abx or steroids. In the ER she was found to have elevated glucose >[address]. Viral swabs negative. She was given rocephin, azithromycin, and insulin. Pt is on RA. Admitted to med surg. Pt states her sugars are normally between 100-200 at home, was surprsied her glucose was so high in ER. States she's feeling better today but not well enough to go home yet. Hospital Course Subjective: Patient was treated with rocephin and azithromycin. She remained on RA. She has done well overall from a pneumonia standpoint. States she feels "great" today. Will discharge home on cefpodoxime and remainder of azithromycin. Cont ear drops. Mag noted to be low and has been replaced. Pt agrees to plan of care. Regarding her elevated blood sugars, they have improved with sliding scale insulin here. She states her sugars are often 100-200 at home. Her a1c has worsened so I question this. However, advised her to track her sugars at home and may need to have insulin dose adjusted outpatient. Glucose could be acutely elevated in setting of illness as well. Pt agrees to plan of care. Of note, imaging noted a left thyroid nodule. Follow up outpatient with pcp. Appearance: Pleasant, No Apparent Distress and Alert HEENT: MMM CVS: No Murmur Abdomen: Soft, Non-Tender and No Distention Respiratory: No Accessory Muscle Use Extremities: No Edema Additional Findings: EENT: TM membranes intact tan, left TM with erythema noted. She has drainage noted in canal but no perforation noted. Vital Signs: Most Recent Vital Signs Temperature 97.2 F L 12/26/24 10:00 Temperature Source Temporal Artery Scan 12/26/24 10:00 Temperature Source Infrared 12/24/24 14:07 Pulse Rate 88 12/26/24 10:00 Respiratory Rate 18 12/26/24 10:00 Blood Pressure 138/97 H 12/26/24 10:00 Blood Pressure Mean 110 12/26/24 10:00 Blood Pressure Left Arm 134/69 12/24/24 18:29 Blood Pressure Location Left Arm 12/26/24 10:00 Blood Pressure Position Supine 12/26/24 05:05 O2 Sat by Pulse Oximetry 92 L 12/26/24 10:00 Oxygen Delivery Method Room Air 12/26/24 10:59 Height 6 ft 1 in 12/24/24 18:29 Weight 82.5 kg 12/24/24 18:29 Telemetry Type Remote Telemetry 12/26/24 07:00 Telemetry Monitoring Continues 12/26/24 07:00 Telemetry Heart Rate 73 12/26/24 07:00 Telemetry SPO2 87 L 04/23/21 07:00 EKG UT Interval 0.16 12/26/24 07:00 EKG QRS Interval 0.06 12/26/24 07:00 Telemetry Strip Reading NSR 12/26/24 07:00 Imaging: EXAM: CHEST CT WITHOUT CONTRAST HISTORY: Cough and fever. TECHNIQUE: CT acquisition of the chest from the thoracic inlet to the upper abdomen without IV contrast administration. 2-D coronal and sagittal reformat elva images were obtained from the axial source images. IV Contrast: None. CT Dose Reduction Techniques Performed: Yes. COMPARISON: The chest x-ray done earlier in the day. FINDINGS: Lines, Tubes, Devices: None. Lung Parenchyma and Airways: Central airways are patent without endobronchial lesion. The patchy reticular nodular opacities seen in the right middle lobe and left lower lobe. The mild amount of patchy reticular opacity in the right lower lobe. No other opacities. No consolidations. Postinflammatory changes in the apices. No suspicious pulmonary nodule. Calcified granuloma in the left upper lobe. Pleural Space: No pleural effusion or thickening. No pneumothorax. Thoracic Inlet, Mediastinum, and Susan: Inferior left thyroid does show a 1.4 cm hypodense nodule. The the remaining thyroid is unremarkable. Multiple small lymph nodes in the mediastinal and hilar regions, some which are calcified. No enlarged lymph nodes or abnormal density. Heart, Vessels, and Pericardium: The heart is normal size without pericardial effusion. Mild coronary artery calcifications. Aorta shows mild atherosclerotic calcific changes without aneurysm. The pulmonary arteries are grossly normal. Bones and Soft Tissues: No fracture, lytic lesion, or blastic lesion. Mild degenerative changes in the spine. Mild degenerative changes of both AC joints. Chest wall soft tissues are unremarkable. Upper Abdomen: Nonobstructing right renal calculi. The right kidney does show a mild atrophy and scarring. The splenic calcifications. A small to moderate hiatal hernia. The duodenal diverticulum. The remaining upper abdomen visualized is within normal limits. IMPRESSION: 1. Patchy reticular nodular opacities seen in the right middle lobe, right lower lobe and left lower lobe. This may represent early nonspecific pneumonia. Suggest follow-up exam to assess for clearing or other etiologies. 2. 1.4 cm hypodense left thyroid nodule. [employer] Incidental Thyroid Findings Committee - 2015 Recommendations: Thyroid nodule < 1 cm: no follow-up Thyroid nodule 1-1.5 cm: follow-up ultrasound for patients </= 35 years old Thyroid nodule >1.5 cm: follow-up ultrasound for all patients 3. Other chronic and non emergent findings as above. Lab Results Last 24 Hours: 12/26/24 04:55 WBC 9.40 RBC 3.82 L Hgb 11.3 L Hct 35.4 L MCV 92.7 MCH 29.6 MCHC 31.9 RDW Coeff of Mariela 12.7 Plt Count 334 Immature Gran % (Auto) 1.1 Neut % (Auto) 65.9 Lymph % (Auto) 22.7 Baldwin % (Auto) 8.5 Eos % (Auto) 1.2 Baso % (Auto) 0.6 Neut # (Auto) 6.2 Lymph # (Auto) 2.1 Baldwin # (Auto) 0.8 Eos # (Auto) 0.1 Baso # (Auto) 0.1 Immature Gran # (Auto) 0.1 Sodium 140.4 Potassium 3.75 Chloride 106.5 Carbon Dioxide 24.4 Anion Gap 13.25 BUN 14.5 Creatinine 0.99 Estimated GFR (MDRD) 55.00 BUN/Creatinine Ratio 14.64 Glucose 184.2 H D Calcium 9.10 Magnesium 1.38 L Total Bilirubin 0.27 AST 43.5 H ALT 45.7 H Alkaline Phosphatase 79.7 Total Protein 6.05 L Albumin 3.08 L Globulin 2.97 Albumin/Globulin Ratio 1.03 Discharge Instructions Discharge Planning: Discharge Planning > [address] Marcio Moulton. Discharge Medications: Medications at Discharge (Home Meds & RX) blood glucose control, normal (OneTouch Ultra Control solution) #100 strips 07/21/20 lancets 33 gauge (BD Ultra Fine Lancets) #100 ea 03/30/21 cholecalciferol (vitamin D3) 25 mcg (1,000 unit) capsule 25 mcg PO QDAY 12/06/23 pen needle, diabetic 31 gauge x 3/16" (BD Ultra-Fine Mini Pen Needle) #100 ea 09/23/24 apixaban 5 mg tablet (Eliquis) See Rx Instructions .Route .COMPLEX #60 tabs 10/09/24 atorvastatin 10 mg tablet See Rx Instructions .Route .COMPLEX #30 tabs 10/09/24 chlorthalidone 25 mg tablet 25 mg PO QDAY #90 tabs 10/09/24 diltiazem HCl 120 mg capsule,extended release 24 hr (Cartia XT) See Rx Instructions .Route .COMPLEX #120 caps 10/09/24 lisinopril 5 mg tablet See Rx Instructions .Route .COMPLEX #180 tabs 10/09/24 metformin 1,000 mg tablet 1,000 mg PO 2XD #60 tabs 10/09/24 insulin degludec 200 unit/mL (3 mL) subcutaneous pen (Tresiba FlexTouch U-200 insulin) See Rx Instructions .Route .COMPLEX 12/24/24 ofloxacin 0.3 % ear drops 10 drp BOTHEARS QDAY 12/24/24 azithromycin 500 mg tablet 500 mg PO DAILY 2 days #2 tabs 12/26/24 cefpodoxime 200 mg tablet 200 mg PO BID 5 days #10 tabs 12/26/24 Discharge Plan Discharge Discharge Orders: Discharge Patient (ONCE); Ordered 12/26/24 Ordered By: MENDY MOORE Activity Restrictions/Additional Instructions: DISCHARGE TO HOME PHARMACY: [facility] DX: PNEUMONIA, LOW MAGNESIUM FOLLOW UP WITH PCP RETURN WITH WORSENING SYMPTOMS MONITOR YOUR SUGARS AT HOME AND WRITE THEM DOWN TO TAKE TO PCP FOLLOW UP, YOU MAY NEED YOUR INSULIN ADJUSTED Instructions: Community Acquired Pneumonia (GEN), Hypomagnesemia (GEN), Diabetic Hyperglycemia (GEN) Care Plan Goals: Problem: Altered Blood Glucose Level Goal: Maintain blood glucose level Within Normal Limits Instructions: Diet as ordered Diet consult if indicated Monitor accucheck levels Monitor signs/symptoms of altered glucose Problem: Fluid and electrolyte imbalance Goal: Maintain fluid and electrolyte balance Instructions: Monitor I/O as needed Obtain labs related to electrolytes Patient Disposition: HOME SELF-CARE Prescriptions: New cefpodoxime 200 mg tablet 200 mg PO BID 5 Days Qty: 10 0RF Rx Instructions: must administer with a meal/food azithromycin 500 mg tablet 500 mg PO DAILY 2 Days Qty: 2 0RF Rx Instructions: Start 12/27/24 Continued (DME) pen needle, diabetic [BD Ultra-Fine Mini Pen Needle] 31 gauge x 3/16" needle See Rx Instructions .ROUTE Qty: 100 2RF Rx Instructions: Use daily with insulin injections ofloxacin 0.3 % drops 10 drp BOTHEARS QDAY Patient Comments: 2 drops in each ear daily Rx Instructions: 2 drops each ear daily insulin degludec [Tresiba FlexTouch U-200] 200 unit/mL (3 mL) insulin pen See Rx Instructions .ROUTE .COMPLEX Patient Comments: pt states takes nightly Rx Instructions: INJECT 50 UNIT (0.25 ML) SUBCUTANEOUSLY nightly (DME) blood glucose control, normal [OneTouch Ultra Control] Solution 1 strip MC TID Qty: 100 2RF Rx Instructions: tid and As directed (DME) lancets [BD Ultra Fine Lancets] 33 gauge misc See Rx Instructions .ROUTE .MEDSUPPLY Qty: 100 2RF Rx Instructions: accucheck three times daily and as needed cholecalciferol (vitamin D3) 25 mcg (1,000 unit) capsule 25 mcg PO QDAY metformin 1,000 mg tablet 1,000 mg PO 2XD Qty: 60 1RF chlorthalidone 25 mg tablet 25 mg PO QDAY Qty: 90 3RF atorvastatin 10 mg tablet See Rx Instructions .ROUTE .COMPLEX Qty: 30 3RF Dose Instruction: TAKE ONE TABLET AT BEDTIME GENERIC FOR LIPITOR Rx Instructions: TAKE ONE TABLET AT BEDTIME GENERIC FOR LIPITOR Eliquis 5 mg tablet See Rx Instructions .ROUTE .COMPLEX Qty: 60 2RF Dose Instruction: TAKE ONE TABLET TWICE DAILY Rx Instructions: TAKE ONE TABLET TWICE DAILY diltiazem HCl [Cartia XT] 120 mg capsule,extended release 24hr See Rx Instructions .ROUTE .COMPLEX Qty: 120 0RF Dose Instruction: TAKE ONE CAPSULE EVERY MORNING Rx Instructions: TAKE ONE CAPSULE EVERY MORNING lisinopril 5 mg tablet See Rx Instructions .ROUTE .COMPLEX Qty: 180 1RF Dose Instruction: TAKE TWO TABLETS DAILY GENERIC FOR ZESTRIL Rx Instructions: TAKE TWO TABLETS DAILY GENERIC FOR ZESTRIL Did you review [place] [employer] for ALL controlled substances?: Not Applicable Discussed opioids are addictive and Narcan is available by prescription or from pharmacy.: No Condition: Stable Referrals: SUSANNAH DORMAN APRN,CELL COVERER-C [Primary Care Provider] - 01/01/25 3:15 pm
[2024-12-26 15:04] VITALS: BP 147/77; PULSE 96; TEMP 97.1
== END 2024-12-26 14:40 | disposition home or self-care (01) ==
LOC: MEDSURG B 13:53 → ED 13:53 → MEDSURG B 18:11
PROVIDERS: ADMIT Hospitalist; ATTEND Physician Assistant
DX: Z79.84 Long term (current) use of oral hypoglycemic drugs; E04.1 Nontoxic single thyroid nodule; I10 Essential (primary) hypertension; Z79.899 Other long term (current) drug therapy; R79.0 Abnormal level of blood mineral; E55.9 Vitamin D deficiency, unspecified; Z20.822 Contact with and (suspected) exposure to COVID-19; J18.9 Pneumonia, unspecified organism; Z51.81 Encounter for therapeutic drug level monitoring; Z79.4 Long term (current) use of insulin; E11.65 Type 2 diabetes mellitus with hyperglycemia; I48.0 Paroxysmal atrial fibrillation; E78.5 Hyperlipidemia, unspecified